=== PATIENT | female | born 1965 | race Caucasian/White ===

== ENCOUNTER 2018-06-08 15:21 | Outpatient (CLI) | payer BC, SELFPAY ==
[2018-06-08 16:28] LABS: Abs Immature Grans 0.01 k/cumm (0.0-0.09); Absolute Basophil Count 0.04 k/cumm (0.0-0.2); Absolute Eosinophil Count 0.17 k/cumm (0.0-0.7); Absolute Lymphocyte Count 2.08 k/cumm (1.2-3.4); Absolute Monocyte Count 0.42 k/cumm (0.11-0.7); Absolute Neutrophil Count 4.81 k/cumm (1.2-6.7); Basophils % 0.5; Eosinophils % 2.3; HCT 39.8 % (36.0-46.0); HGB 13.1 g/dL (12.0-15.5); Immature Grans % 0.1; Lymphocytes % 27.6; Mean Corp. HGB Concentration 32.9 g/dL (32.0-36.0); Mean Corpuscular Hemoglobin 30.9 pg (27.0-33.0); Mean Corpuscular Volume 93.9 fL (80-95); Mean Platelet Volume 11.8 fL (8.0-11.0); Monocytes % 5.6; Neutrophils % 63.9; Platelet Count 184 x1000/uL (130-400); RBC 4.24 m/cumm (4.00-5.20); RBC Distribution Width 13.4 % (11.7-14.6); White Blood Cell Count 7.53 k/cumm (4.4-10.8)
[2018-06-08 16:40] LABS: ALT 23 U/L (12-78); AST 21 U/L (15-37); Alkaline Phosphatase 70 U/L (46-116); Anion Gap 6.8 mmol/L (3-11); BUN 11 mg/dL (7-18); Bilirubin, Total 0.2 mg/dL (0.2-1.0); CO2 27.2 mmol/L (21.0-32.0); CREATININE 0.81 mg/dL (0.55-1.02); Calcium 8.5 mg/dL (8.5-10.1); Chloride 103 mmol/L (98-107); Cholesterol 207 mg/dL (50-200); Glucose 93 mg/dL (70-100); HDL Cholesterol 83 mg/dL (40-60); LDL CHOLESTEROL 99 mg/dL (<100); Potassium 3.6 mmol/L (3.5-5.1); Sodium 137 mmol/L (136-145); Total Protein 7.5 g/dL (6.4-8.2); Triglyceride 120 mg/dL (30-150)
[2018-06-08 16:47] LABS: TSH (W/Ref FT4) 1.51 uIU/mL (0.358-3.74)
[2018-06-09 15:00] LABS: Lipase 240 U/L (73-393)
== END 2018-06-08 15:41 ==
PROVIDERS: PCP Nurse Practitioner; Visit Provider Nurse Practitioner
DX: R63.5 Abnormal weight gain (principal); Z13.220 Encounter for screening for lipoid disorders; R10.9 Unspecified abdominal pain
CPT/HCPCS: 36415; 80053; 80061; 83690; 83721; 84443; 85025

== ENCOUNTER 2018-06-11 00:14 | Outpatient (CLI) | payer BC, SELFPAY ==
--- NOTE | 2018-06-11 09:18 | DI.US_ITS ---
SYMPTOMS/DIAGNOSIS: RUQ PAIN, WORSE WITH EATING, DIARRHEA AFTER EATING, NAUSEA , R10.11, R19.7 ABDOMEN ULTRASOUND: Comparison is made with [id number]. A cyst is again noted at the superior right lobe of the liver measuring 2.7 cm in maximal dimension, unchanged. The overall liver echogenicity is normal. There is no biliary dilatation. No gallstones or gallbladder wall thickening. There is an incidental 3 mm polyp in the gallbladder. On the previous exam it was at measured 6 mm. The kidneys, spleen , pancreas and aorta are unremarkable. IMPRESSION: Small gallbladder polyp. No evidence of gallbladder wall thickening , stones or biliary dilatation.
== END 2018-06-11 00:34 ==
PROVIDERS: PCP Nurse Practitioner; Visit Provider Nurse Practitioner
DX: R10.11 Right upper quadrant pain (principal); R19.7 Diarrhea, unspecified; K82.4 Cholesterolosis of gallbladder
CPT/HCPCS: 76700

== ENCOUNTER 2018-07-18 19:03 | Emergency (ER) | payer BC, SELFPAY ==
[2018-07-18] VITALS (17 sets, daily range): BP systolic 132–174; BP diastolic 73–88; PULSE 69–93; RESP 1–28; TEMP 36.1; O2SAT 99–100
--- NOTE | 2018-07-18 19:21 | ED.GENADUL_ITS ---
Discharge Plan Disposition Patient Disposition: HOME Condition: Good Discharge Details Chief Complaint: SOB Clinical Impression: Exacerbation of reactive airway disease Primary Care Provider: Brooke Ann ED Provider: Rosendo Schumacher Home Meds and New Rx's Prescriptions: No Action amoxicillin-pot clavulanate [Augmentin] 500-125 mg tablet 1 tab PO BID Qty: 20 RF: 0 multivitamin [Daily Multi-Vitamin] 1 EACH tablet 1 ea PO DAILY RF: 0 estrogen as directed RF: 0 fluticasone 16 GM spray,suspension 50 mcg NS DAILY PRNRF: 0 diclofenac sodium [Voltaren] 100 GM gel 1 angeles Topical QID Qty: 1 RF: 2 trazodone 50 MG tablet 50 mg PO HS PRNQty: 30 RF: 3 cyclobenzaprine 5 MG tablet 5 mg PO TID PRNQty: 60 RF: 1 bupropion HCl [Wellbutrin SR] 100 MG tablet extended release 12 hr 100 mg PO DAILY Qty: 90 RF: 3 epinephrine [EpiPen 2-Paulino] 0.3 MG/0.3 ML auto-injector 0.3 mg IM ONCE Qty: 2 RF: 12 levalbuterol tartrate [Xopenex HFA] 15 GM HFA aerosol inhaler 45 mcg Inhalation Q4H PRN PRNQty: 1 RF: 12 promethazine 25 MG tablet 25 mg PO BID Qty: 20 RF: 0 Discharge Instructions Instructions: Reactive Airways Disease (ED) Additional Instructions: Please take your home albuterol every 4-6 hours for the next 24-48 hours. If you notice any worsening of your symptoms, or any new symptoms such as vomiting , diarrhea, fever, chills, shortness of breath, chest pain, numbness, weakness, or fainting , please return immediately to the emergency department for reevaluation. Please follow up with your primary care provider as soon as possible for reassessment and reevaluation. As always, it was a pleasure participating in your medical care today. Referrals: Brooke Ann, [employer] [Primary Care Provider] - Medical Decision Making This is a pleasant 53-year-old female with a past medical history of estrogen use and asthma who presents for evaluation of cough, shortness of breath, and pleuritic chest pain. Patient had no improvement of her symptoms with her breathing treatments. Differential includes potential PE, unlikely cardiac etiology, or pain secondary to her gallbladder which will be taken out later this week. We will perform her a cardiac workup, get a d-dimer, and imaging as indicated. 9:26 PM Laboratory workup is returned benign. EKG is benign, vital signs remained normal the entire time she has been here. Patient has had no oxygen desaturations, tachycardia, or tachypnea. Laboratory workup demonstrates a normal WBC count, no bandemia, d-dimer was normal, electrolytes, renal function were all normal, troponin is within normal limits. TSH is normal. Patient was given a breathing treatment and had significant improvement of her symptomatology. She was also rehydrated with 1 L of normal saline and had improvement of her symptoms. Chest x-ray was wet read as negative per virtual radiology with no acute findings. The patient feeling significantly improved , having normal vital signs, no signs of pneumonia on chest x-ray, normal EKG and cardiac workup, I feel that she can be safely discharged home. Feel her symptoms may be secondary to a mild worsening of her chronic reactive airway disease. We will give Solu-Medrol prior to discharge. With no hypoxemia, no severe wheezes on auscultation, I do not feel that she has a true asthma or COPD exacerbation does not require prolonged steroids. We have recommended that she continues her home albuterol every 4-6 hours for the next 24-48 hours. Had a long discussion with her regarding red flags for which to return, including the importance of follow-up with PCP and potential cardiology if her symptoms return. Additionally with the patient's heart score of less than 2, and no family or personal cardiac risk factors I feel that the likelihood for this to be any cardiac etiology is extremely slim, and certainly inconsistent with her current clinical picture. I have extensively reviewed the treatment plan and discharge instructions with the patient. I have addressed all patient concerns at this time. The patient was made aware of what symptoms to monitor for that would warrant a return to the emergency department. Discussed the plan with the patient, they demonstrate verbal understanding and agreement with our assessment and plan at this time. EKG 19: 27 Rate 73, intervals normal, sinus rhythm, no significant ST elevations or depressions, no T wave inversions, no Q waves. No S1 Q 3 T3. HPI General Date/Time Provider Initiated Documentation: 07/18/18 19:14 . HPI Narrative: This is a 53-year-old female with a past medical history of asthma, and estrogen use for menopause. She has an noted gallbladder cyst, for which she is scheduled to have removed this coming week. She presents today for evaluation of cough, shortness of breath and chest pain. She states that for the last 4 days she has had mild shortness of breath, notable fatigue, mild cough that is been slightly productive, as well as pleuritic chest pain, worse on the left, and radiating to the back of her left scapula. She is taking her breathing treatments but this is not improved her symptoms. She denies any recent long trips, recent surgeries, or history of blood clots or PEs. She denies any personal or family history of cardiac disease. She has been sticking to a nonfat diet except for yesterday where she had some gravy and chicken, but she denies any associated nausea vomiting or abdominal pain. Patient denies any hemoptysis. She denies any calf swelling or tenderness. She denies any radiation of the pain into her arms or neck. Patient denies any aggravating or relieving factors aside for aforementioned. Patient denies any IV, illicit drug use, or tobacco use. Of note the patient also did have recent parotidis, for which she was taking Augmentin. The symptoms have since resolved. It is been a few days since she has been on the antibiotic. Related Data Home Medications Medication Instructions Recorded Confirmed Estrogen 0 as directed 07/27/15 multivitamin [Multi-Vitamin Daily] 1 ea PO DAILY 07/27/15 06/08/18 fluticasone 50 mcg NS DAILY PRN spray 08/09/15 06/08/18 diclofenac sodium [Voltaren] 1 angeles TOPICAL QID #1 tube 03/10/17 trazodone 50 mg PO HS PRN #30 tab 11/23/17 bupropion HCl [Wellbutrin Sr] 100 mg PO DAILY #90 tab 01/06/18 cyclobenzaprine 5 mg PO TID PRN #60 tab-cap 01/06/18 epinephrine [Epipen 2-Paulino] 0.3 mg IM ONCE #2 pen 01/06/18 levalbuterol tartrate [Xopenex Hfa] 45 mcg INHALATION Q4H PRN PRN #1 01/06/18 inhaler promethazine 25 mg PO BID #20 tab-cap 04/08/18 amoxicillin 500 mg-potassium 1 tab PO BID #20 tab 06/08/18 06/08/18 clavulanate 125 mg tablet Previous Rx's Medication Instructions Recorded bupropion HCl [Wellbutrin Sr] 100 mg PO DAILY #90 tab 01/06/18 epinephrine [Epipen 2-Paulino] 0.3 mg IM ONCE #2 pen 01/06/18 promethazine 25 mg PO BID #20 tab-cap 04/08/18 amoxicillin 500 mg-potassium 1 tab PO BID #20 tab 06/08/18 clavulanate 125 mg tablet Allergies Allergy/AdvReac Type Severity Reaction Status Date / Time morphine Allergy itchy Unverified 07/18/18 19:18 General Stated Complaint: SOB VONDA: 2 Review of Systems Review of Systems All systems reviewed & are unremarkable except as noted in HPI and below PFSH Family History Mother Osteoporosis Father Diabetes Personal history of malignant neoplasm Melanoma Sister Breast cancer Sister No problems noted. Sister No problems noted. Brother No problems noted. Brother No problems noted. Son No problems noted. Daughter No problems noted. Grandmother Diabetes Grandfather No problems noted. Other Alcohol abuse Medical History Anxiety and depression Migraine asthma Social History Smoking/Tobacco Use Status: Never Surgical History Appendectomy Colonoscopy w/ bx (03/18/06) Hysterectomy, Laproscopic (01/08/11) excisional biopsy (01/17/02) Exam Narrative Exam Narrative: 1.Const: Well-nourished, Well-developed, appearing stated age 2.Eyes: PERRL, no conjunctival injection, and symmetrical lids. 3.ENT: Atraumatic external nose and ears. Moist MM. Neck: Symmetric, trachea midline, No thyromegaly. 4.CVS: +S1/S2, No murmurs or gallops. Peripheral pulses 2+ and equal in all extremities. Brisk capillary refill in all extremities. 5.RESP: Unlabored respiratory effort. Clear to auscultation bilaterally. No wheezes rales or rhonchi 6.GI: Soft, Nontender/Nondistended, No hepatosplenomegaly. No guarding or rebound. Negative Mao sign, no pain at McBurney's point for 7.MSK: Normocephalic/Atraumatic, Extremities w/o deformity or ttp No cyanosis or clubbing, Normal movement of all extremities no calf tenderness. 8.Skin: Warm, Dry. No rashes or lesions. 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 Sensation grossly intact, no focal neurologic deficits. 10.Psych: (AAO) x3. Appropriate mood and affect Course Vital Signs Temperature 36.1 C L 07/18/18 19:10 Pulse 90 07/18/18 19:10 Respiratory Rate 17 07/18/18 19:10 Blood Pressure 174/79 H 07/18/18 19:10 Pulse Oximetry 99 07/18/18 19:10 Temperature 36.1 C L 07/18/18 19:10 Temperature Source Temporal Artery Scan 07/18/18 19:10 Pulse 90 07/18/18 19:10 Respiratory Rate 17 07/18/18 19:10 Respiratory Effort Non-Labored 07/18/18 19:13 Blood Pressure 174/79 H 07/18/18 19:10 Blood Pressure Position Sitting 07/18/18 19:10 Pulse Oximetry 99 07/18/18 19:10 Oxygen Delivery Method Room Air 07/18/18 19:10 Oxygen Flow Rate 0 07/18/18 19:10
[2018-07-18] MEDS: Normal Saline 1,000 ML 1000 ML IV (19:35)
[2018-07-18 19:46] LABS: Abs Immature Grans 0.01 k/cumm (0.0-0.09); Absolute Basophil Count 0.07 k/cumm (0.0-0.2); Absolute Eosinophil Count 0.31 k/cumm (0.0-0.7); Absolute Lymphocyte Count 3.29 k/cumm (1.2-3.4); Absolute Monocyte Count 0.53 k/cumm (0.11-0.7); Absolute Neutrophil Count 2.58 k/cumm (1.2-6.7); Eosinophils % 4.6; HCT 37.1 % (36.0-46.0); HGB 13.1 g/dL (12.0-15.5); Immature Grans % 0.1; Lymphocytes % 48.5; Mean Corp. HGB Concentration 35.3 g/dL (32.0-36.0); Mean Corpuscular Hemoglobin 31.6 pg (27.0-33.0); Mean Corpuscular Volume 89.4 fL (80-95); Mean Platelet Volume 11.4 fL (8.0-11.0); Monocytes % 7.8; Platelet Count 183 x1000/uL (130-400); RBC 4.15 m/cumm (4.00-5.20); RBC Distribution Width 12.4 % (11.7-14.6); White Blood Cell Count 6.79 k/cumm (4.4-10.8)
[2018-07-18] MEDS: Albuterol/Ipratropium 3 ML UPD VIAL UPD (19:50)
[2018-07-18 20:03] LABS: ALT 32 U/L (12-78); AST 27 U/L (15-37); Albumin 3.7 g/dL (3.4-5.0); Alkaline Phosphatase 64 U/L (46-116); Anion Gap 11.5 mmol/L (3-11); BUN 18 mg/dL (7-18); Bilirubin, Total 0.2 mg/dL (0.2-1.0); CO2 23.5 mmol/L (21.0-32.0); Calcium 9.4 mg/dL (8.5-10.1); Chloride 105 mmol/L (98-107); Glucose 99 mg/dL (70-100); Potassium 3.5 mmol/L (3.5-5.1); Sodium 140 mmol/L (136-145); Total Protein 7.3 g/dL (6.4-8.2)
[2018-07-18 20:05] LABS: Troponin I < 0.02 ng/mL (0.00-0.06)
[2018-07-18 20:11] LABS: TSH 2.91 uIU/mL (0.358-3.74)
[2018-07-18 20:15] LABS: D-Dimer 298 ng/mlFEU (<500)
--- NOTE | 2018-07-18 20:39 | DI.RAD_ITS ---
SYMPTOM/DIAGNOSIS: COUGH, LT UPPER CHEST PAIN PA AND LATERAL CHEST: There are no prior comparison exams. The heart size is normal. There is mild respiratory motion on the PA view. The lungs appear clear. IMPRESSION: Negative chest xray.
[2018-07-18] MEDS: Ketorolac 30 MG/ML VIAL IVP (21:01)
--- NOTE | 2018-07-18 21:09 | DI.VRAD_ITS ---
EXAM: XR Chest, 2 Views EXAM DATE/TIME: 07/18/2018 8:40 PM CLINICAL HISTORY: 53 years old, female; Pain; Chest pain; Type not specified; Patient HX: Lt upper cp TECHNIQUE: XR of the chest, 2 views. COMPARISON: No relevant prior studies available. FINDINGS: Lungs: Unremarkable. No consolidation. Pleural space: Unremarkable. No pleural effusion. No pneumothorax. Heart/Mediastinum: Unremarkable. No cardiomegaly. Bones/joints: Unremarkable. IMPRESSION: No acute findings. Dictated and Authenticated by: Matt Aguiar MD. Ordering:KOLE CASTILLO MD
[2018-07-18] MEDS: methylPREDNISolone SUCC 125 MG VIAL IVP (21:46)
== END 2018-07-18 22:11 | disposition home or self-care (01) ==
PROVIDERS: Emergency Provider Student in an Organized Health Care Education/Training Program; PCP Nurse Practitioner
DX: J45.901 Unspecified asthma with (acute) exacerbation (principal)
CPT/HCPCS: 36415; 80053; 93005; 94640; 96361; 96374; 96375; 99285; 71046; 84443; 84484; 85025; 85379; 93010; J1885; J2930; J7620

== ENCOUNTER 2018-09-13 17:13 | Outpatient (REF) | payer BC, SELFPAY ==
[2018-09-14 22:23] LABS: Result Positive; Specimen Description Feces
[2018-09-15 11:20] LABS: Campylobacter PCR SEE COMMENTS; Salmonella PCR SEE COMMENTS; Shiga Toxin PCR SEE COMMENTS; Shigella/Enteroinvasive Ecoli SEE COMMENTS
== END 2018-09-13 17:33 ==
LOC: LBN 17:13
PROVIDERS: PCP Nurse Practitioner; Visit Provider Nurse Practitioner
DX: R19.7 Diarrhea, unspecified (principal)
CPT/HCPCS: 87505; 87324; 87798

== ENCOUNTER 2019-06-06 00:31 | Outpatient (CLI) | payer BC, SELFPAY ==
[2019-06-06 14:02] LABS: CREATININE 0.71 mg/dL (0.55-1.02)
--- NOTE | 2019-06-06 15:06 | DI.MRI_ITS ---
SYMPTOM/DIAGNOSIS: ; PAROTIDS K11.20, JAW PAIN R68.84 FACIAL, NECK MRI: 06/06 MRI examination of the cervical region was performed utilizing multiplanar imaging. The patient refused contrast material. No gross mass or adenopathy identified in the cervical region. The visualized orbits and temporal bone structures appear intact. Visualized brain is unremarkable. There is an approximately 3 mm in diameter nodule of the parotid gland on the right which lies just posterior lateral to the angle of the mandible. On the left there is an approximately 6 mm in diameter nodule which is in a similar location. No additional convincing intra parotid abnormality seen. Submandibular glands appear normal. CONCLUSION: Tiny thyroid nodules are seen bilaterally, these are of mildly decreased signal on T-1 weighted imaging and mildly increased signal on T2 weighted imaging. These may represent small intraparotid lymph nodes, neoplastic disease not excluded but the findings are indeterminate. Contrast enhanced MR or contrast enhanced CT recommended for further evaluation. If the patient refuses any contrast examination a follow up scan can be obtained in six months.
== END 2019-06-06 00:51 ==
PROVIDERS: PCP Nurse Practitioner; Visit Provider Otolaryngology Otolaryngology/Facial Plastic Surgery
DX: K11.20 Sialoadenitis, unspecified (principal); R68.84 Jaw pain; Z01.812 Encounter for preprocedural laboratory examination; K11.8 Other diseases of salivary glands
CPT/HCPCS: 36415; 70540; 70551; 82565

== ENCOUNTER 2019-10-19 12:53 | Outpatient (CLI) | payer BC, SELFPAY ==
[2019-10-19 13:19] LABS: HCT 40.5 % (36.0-46.0); HGB 13.4 g/dL (12.0-15.5); Mean Corp. HGB Concentration 33.1 g/dL (32.0-36.0); Mean Corpuscular Hemoglobin 30.7 pg (27.0-33.0); Mean Corpuscular Volume 92.9 fL (80-95); Platelet Count 193 x1000/uL (130-400); RBC 4.36 m/cumm (4.00-5.20); White Blood Cell Count 6.67 k/cumm (4.4-10.8)
[2019-10-19 14:03] LABS: ALT 19 U/L (14-59); AST 14 U/L (15-37); Albumin 3.8 g/dL (3.4-5.0); Alkaline Phosphatase 55 U/L (46-116); Anion Gap 8.4 mmol/L (3-11); BUN 15 mg/dL (7-18); Bilirubin, Total 0.2 mg/dL (0.2-1.0); CO2 28.6 mmol/L (21.0-32.0); CREATININE 0.81 mg/dL (0.55-1.02); Calcium 8.8 mg/dL (8.5-10.1); Calculated LDL 86 mg/dL; Chloride 104 mmol/L (98-107); Cholesterol 190 mg/dL (<200); Glucose 91 mg/dL (74-106); HDL Cholesterol 79 mg/dL (40-60); Potassium 4.2 mmol/L (3.5-5.1); Sodium 141 mmol/L (136-145); Total Protein 7.1 g/dL (6.4-8.2); Triglyceride 129 mg/dL (<150)
[2019-10-20 13:23] LABS: Lyme Ab w Rflx to Lyme Confirm Negative (Negative)
[2019-10-21 13:56] LABS: ANA Interpretation Negative (Negative)
[2019-10-21 16:13] LABS: Anaplasma phagocytophilum Negative (Negative); B. miyamotoi PCR Negative (Negative); Babesia divergens/MO-1 Negative (Negative); Babesia duncani Negative (Negative); Babesia microti Negative (Negative); Ehrlichia chaffeensis Negative (Negative); Ehrlichia ewingii/canis Negative (Negative); Ehrlichia muris eauclairensis Negative (Negative)
== END 2019-10-19 13:13 ==
PROVIDERS: PCP Nurse Practitioner; Visit Provider Nurse Practitioner
DX: M25.50 Pain in unspecified joint (principal); M35.00 Sjogren syndrome, unspecified; R53.83 Other fatigue; Z13.220 Encounter for screening for lipoid disorders
CPT/HCPCS: 36415; 80053; 80061; 85027; 87798; 86038; 86431; 86618

== ENCOUNTER 2020-04-09 07:16 | Day surgery (SDC) | payer BC, SELFPAY ==
[2020-04-09 07:19] VITALS: BP 132/85; PULSE 84; RESP 17; TEMP 36.1; O2SAT 96
[2020-04-09] MEDS: Lactated Ringers 1,000 ML 80 ML IV (07:40)
[2020-04-09 08:25] VITALS: BP 133/79; PULSE 72; RESP 16; TEMP 36; O2SAT 100
--- NOTE | 2020-04-09 08:49 | W.COLOREPORT ---
Date of service: 04/09/20 Time of Service: 08:50 Colonoscopy Report Date of procedure: 04/09/20 Pre-op diagnosis general: screening / hx of C.diff and katlyn. chronic diarrhea Post-op diagnosis procedure note: same Procedure: CE Surgeon: Alejandrina Cortes Anesthesia proc note operative: MAC Estimated blood loss (mL): 0 Pathology: none sent Complications: None Disposition: same day Prep: Miralax/Dulcolax Retraction Time: 10 mins Procedure Description: After informed consent was obtained the patient was taken to the procedure room and placed in a left decubitous position. Monitors were applied and a time out was done. The patients name, date of , procedure, allergies to medications and metal in their body was reviewed. The patient was then sedated. Once sedated and comfortable a rectal exam was done. External exam was normal. Internal exam revealed a normal sphincter tone and no palpable masses. The scope was then introduced and retrofelexed. No internal hemorrhoids were identified. The scope was then advanced to the cecum w/ outu difficulty. The TI and appendiceal orifice were identified. The prep was good. The scope was then slowly retracted over [] minutes back into the rectum. No polyps AVMs or diverticuli identified. The colon is pink and healthy and no signs of colitis or C. difficile. The scope was removed and the patient was woken up and taken back to Same day surgery in stable condition. The patient tolerated the procedure well and there were no immediate complications. Follow up: The patient should follow up in 10 years unless they develop changes in bowel habits or other new gastrointestinal complaints.
--- NOTE | 2020-04-09 09:01 | PDOC.DSDIS_ITS ---
Discharge Plan Disposition Patient Disposition: HOME Condition: Good Discharge Details Reason For Visit: colon scope Attending Provider: Alejandrina Cortes Primary Care Provider: Brooke Ann Home Meds and New Rx's Prescriptions: No Action cyclobenzaprine 5 mg tablet 5 mg PO TID PRN (Reason: muscle spasm) Qty: 60 RF: 0 epinephrine [EpiPen 2-Paulino] 0.3 mg/0.3 mL auto-injector 0.3 mg IM ONCE Qty: 2 RF: 12 multivitamin [Daily Multi-Vitamin] 1 EACH tablet 1 ea PO DAILY RF: 0 estrogen 0.5 mg PO DAILY RF: 0 acetaminophen 500 mg Tablet 1,000 mg PO Q6H PRNRF: 0 bupropion HCl [Wellbutrin SR] 100 mg tablet sustained-release 12 hr 100 mg PO DAILY Qty: 90 RF: 3 albuterol sulfate [Proventil HFA] 90 mcg/actuation HFA aerosol inhaler 1 - 2 puff IH Q6H PRN (Reason: shortness of breath or wheezing) Qty: 18 RF: 5 fluticasone propionate 110 mcg/actuation HFA aerosol inhaler 2 puff IH BID Qty: 12 RF: 4 trazodone 50 mg tablet 50 mg PO HS PRN (Reason: insomnia) Qty: 90 RF: 1 Discharge Instructions Additional Instructions: Findings:normal Repeat in 10 yrs time Kefir daily for proBiotics cont. fiber regimen. If diarrhea continues, F/u w/ my office to d/w starting cholestyramine. Follow up: as needed Please call if you develop: fevers >101.5 Nausea or Vomiting Abdominal pain that is not transient DAY SURGERY UNIT POST COLONOSCOPY INSTRUCTIONS 1. Because there will be medication in your system for the next 24 hours, you may feel a little sleepy. Your coordination will be affected. Therefore: a. Do not drive or operate dangerous equipment for 24 hours. b. Do not drink alcohol beverages for 24 hours (not even beer). c. Plan to go home and rest for the day. 2. Generally there are no restrictions on your activity after a day or so has gone by, but you may feel a bit fatigued for a few days. 3 After you arrive home you may have a light meal and return to a normal diet as you can tolerate it without feeling sick to your stomach. 4. After surgery, you may feel pain or discomfort. This should be only transient, but if it persists please contact your doctor. 5. If there are any questions regarding the findings of your procedure, please feel free to contact your doctor. 6. If you are unable to contact your doctor with a problem, contact the hospital at [phone]. 7. Continue all your regular medications unless directed otherwise. I understand the above instructions and have no questions. Signature of Patient or Responsible Adult Escort Date/Time Name of Responsible Adult Escort Signature of Nurse Date/Time High Fiber Diet What is Dietary Fiber? All fiber comes from plants, bushes, ana or trees. Of course, the ones that we eat provide us with fruits, vegetables and grains. There are many different types of fiber but the three that are most important to the health of the body are: Insoluble Fiber This fiber does not dissolve in water, nor is it fermented by the bacteria residing in the colon. Rather, it retains water and in so doing, helps to promote a larger, bulkier and more regular bowel activity. This, in turn, may be important in preventing disorder such as diverticulosis and hemorrhoids, and in sweeping out certain toxins and cancer causing carcinogens. Sources of insoluble fiber are: ? whole grain wheat and other whole grains ? corn bran, including popcorn, unflavored and unsweetened ? nuts and seeds ? potatoes and the skins from most fruits from trees such as apples, bananas and avocados ? many green vegetables such as green beans, zucchini, celery and cauliflower ? some fruit plants such as tomatoes and kiwi Soluble Fiber These fibers are fermented or used by the colon bacteria as a food source or nourishment. When these good bacteria grow and thrive, many health benefits occur in both the colon and the body. Soluble fiber is present in some degree in most edible plant foods, but the ones with the most soluble fiber include: ? legumes such as peas and most beans, including soybeans ? oats, rye and barley ? many fruits such as berries, plums, apples bananas and pears ? certain vegetables such as broccoli and carrots ? most root vegetables ? psyllium husk supplement products Prebiotic Soluble Fiber These are relatively newly discovered soluble plant fibers. The technical name for this fiber is inulin or fructan. When these soluble fibers are fermented by the good colon bacteria, some further significant health benefits have been shown to occur by research in many medical centers. These soluble prebiotic fibers occur in significant amounts in: ? asparagus ? yams ? onions ? garlic ? bananas ? leeks ? agave ? chicory and other root vegetables such as [place] artichokes ? wheat, rye and barley (smaller amounts) Benefits of a High Fiber Diet The health benefits of a high fiber diet, consumed on a regular basis and reaching recommended amounts (below), are now fairly well-defined. There are some additional benefits in the early research stage with the prebiotic soluble fibers. What is now known regarding a high fiber diet include: Bowel Regularity A high fiber diet promotes regularity with a softer, bulkier and regular stool pattern. This decreases the chance of hemorrhoids, diverticulosis and perhaps colon cancer. Cholesterol and Reduced Triglycerides The soluble fibers are the ones that will reduce cholesterol levels when used on a regular basis. Psyllium husk and prebiotic soluble fiber will also reduce cholesterol. They may also reduce the incidence of coronary heart disease. Oats, flax seeds and legumes or beans are the recommended fibers. Colon Polyps and Cancer It is still not certain if a high fiber diet helps prevent colon cancer. Considerable research suggests that this may occur. Certainly it makes sense to increase regularity and so speed the movement of cancer causing carcinogens through the bowel. In addition, reducing a heavy meat diet reduces the bile flow from the liver in a favorable way. This, too, reduces the amount of carcinogens that reach and are manufactured in the colon. Finally, a high fiber diet, including prebiotic soluble fiber, increases the integrity and health of the wall of the colon. The risk of cancer may be reduced. Colon Wall Integrity A high fiber diet changes the bacterial makeup of the colon toward a more favorable balance. For instance, it is known that those people with obesity, diabetes type 2 and inflammatory bowel disease have a predominance of bad bacteria in the colon. This, in turn, may render the bowel wall weak and allow bacteria and, indeed, even toxins to seep through. A high fiber diet with a modest reduction in animal and meat products may return the bacterial makeup to a more positive balance. This, in particular, has been seen when the soluble fiber prebiotics are added to the diet. Blood Sugar Soluble fiber such as in legumes (beans), oats and in prebiotic fibers slows the absorption of blood sugar and so helps regulate the sugar in the blood. Insoluble fiber on a regular basis is associated with reduced risk of type 2 diabetes. Weight Loss High fiber diets are more filling and give a sense of fullness sooner than an animal and meat based diet does. In addition, the soluble prebiotic fibers have been shown to turn off the hunger hormones produced in the wall of the gut and to increase the hormones that give a sense of fullness. Those hormones are made in the wall of the gut. New medical research has shown that the bacterial makeup in the colon in overweight people is abnormal to the extent that they manufacture and absorb almost twice the number of calories through the colon wall as do normals. Prebiotic fibers (below) will help change this hormonal balancein a favorable way. Bacteria and the Function of the Colon The colon finishes the digestive process. Hopefully, the waste products move through in a nice regular manner. Insoluble fibers help this process by retaining water and so producing a bulkier, softer stool, which is easy to pass. The additional role of the colon is to provide a home for an enormous number of micro-organisms, mostly bacteria. Recent research has shown that there are over 1,000 species of bacteria with a total bacterial count ten times the number of cells in the body. These bacteria play a major role in keeping the colon wall itself healthy. In addition, these good bacteria produce a very strong immune system for the body. They significantly increase calcium absorption and bone density. They provide other documented benefits. It is the soluble fibers in the diet that are so effective in stimulating the growth of good colon bacteria. How Much is Enough? The amount of fiber in food is measured in grams. National nutritional authorities recommend the following amounts of dietary fiber daily. Under Age 50 Over Age 50 Men 38 grams 30 grams Women 25 grams 21 grams For a week or so, it is best to tally the amount of fiber you are consuming. Boxed and packaged foods will have the amount of fiber per serving on the nutrition label. Which Fibers and Which Foods are Best? As noted, healthy fiber is only found in plants. The three major categories are whole grains, fruits and vegetables. Whole Grains Wheat, oats, barley, wild or brown rice, amaranth, buckwheat, bulgur, corn, millet, quinoa, rye, sorghum, teff and triticals. By far, wheat, oats and wild or brown rice are most common. Always buy whole grain products. White bread, baked goods and rolls almost always are made from wheat flour. Wheat flour is white because most of the fiber, vitamins and other nutrients have been removed. Try not buy enriched grains. What this means is that simple white flour has had vitamins added to it by the supervisor of officials. The word, enriched, implies a good and healthy product. On the contrary, enriched means that most of the fiber has been removed and a few vitamins added. Fruits Fruits come from trees such as apple and pear or from bushes or ana. You should eat a wide variety of fruits, preferably with every meal. In many cases, the skin of a fruit such as apple will contain much of the insoluble fiber while the pulp contains most of the soluble fiber. To the extent possible, buy organic fruits as these will have little or no pesticides. Always wash fruit. Vegetables Eat a wide variety of vegetables. They should be a mainstay of lunch and dinners. Frozen vegetables retain as much nutrition and fiber as fresh vegetables. As with fruit, try to buy organic to reduce any residual pesticide ingestion. Wash fresh vegetables thoroughly. Cruciferous vegetables such as broccoli, [place] sprouts and cauliflower contain certain chemicals such as sulforaphane. This substance has very strong anti-cancer properties and should be eaten frequently. Legumes, Beans, Peas and Soybeans These vegetables have plenty of soluble fiber and should be part of a varied vegetable intake. Beans, in particular, contain a certain type of fiber that may lead to harmless gas or bloating. Nuts and Seeds These are rich sources of fiber and are a good substitute for sweets such as candies and baked sweet goods. While nuts and seeds are rich in fiber, they also contain vegetable fat and so can and do add calories. Read the Labels As noted, fresh and frozen foods are usually better. They have good nutrition and few, if any, chemicals added to them. When buying packaged foods and, in particular grains, look for three things: ? The first word on the label should be whole, such as whole wheat or whole grain. ? Check out the calories and the amount of fiber in a serving. ? How many and what other additives or chemicals are added. Fewer is always better. Do you know what each additive does? Some are added not for the benefit of the purchasing buyer but rather for manufacturers. These could and do include sugar, artificial flavor, chemicals to prevent oxidation and spoilage, emulsifiers to blend the product. You have to be a squirrel worker. Fiber Facts, Nuggets and Pearls ? For breakfast you can easily get the day started well by using a high fiber, whole grain cereal. Check the labels. Add fruit such as blueberries and bananas. If you are an egg eater, use whole wheat or grain toast. Adding wheat germ gives you a good fiber kick. ? Always use whole grain or wheat with rolls and sandwiches. Does your fast food store not have them? Perhaps you look elsewhere. Eating an occasional b lack hilario or veggie burger provides variety. ? Snacks should consist of fruit and/or nuts. While nuts are loaded with fiber, they are an energy rich food, meaning they have a lot of calories in a small packet. ? Fruit juices should contain pulp. Clear juices such as clear orange, pear or apple juice contain little fiber and have a lot of fructose. Prune juice is usually high in fiber. ? Homemade soups ? adding fresh or frozen vegetables to a chicken or vegetable stock is a good way to start homemade soup. ? Salads ? adding cooked and then chilled vegetables provide great flavoring to almost any salad. Remember, a john salad has lots of cooked corn in it. Small slices of apples or oranges and nuts such as chopped walnuts or sliced almonds always adds taste, variety and fiber to almost any salad. ? Fruit ? Try to eat fruit of some type with almost every meal. ? Rethink how you place the various foods on your dinner plate. Reducing the portions of the meat or animal food portion to the side with equal or more portions of vegetables, legumes and fruits portion always allows for more fiber. There was never anything magic about making the meat or animal food portion the main part of the dinner plate. Eating from smaller plates can, over time, trick your mind and extermination inspector habit of using a dinner plate. Again, there is nothing magic in an 11, 12, or 13 inch dinner plate. Fiber Supplements There are a variety of fiber supplements available on the food or pharmacy shelves. Psyllium This soluble plant fiber has been used in [place] for over 2,000 years. It is a soluble fiber with mucilage in it. This acts to retain a lot of water and also is fermented by colon bacteria. When 7 grams a day are used, it does lower cholesterol. Metamucil in various forms is psyllium. Methyl Cellulose All the cellulose products come from finely ground wood chips which are then treated in a variety of ways such as boiling in acids. Methyl cellulose is an insoluble fiber which does dissolve in water. It is also an emulsifier, meaning it blends oils and water. Citrucel is methyl cellulose (MC). MC may not be appropriate for Crohn?s disease or ulcerative colitis as several medical studies have shown that certain emulsifiers dissolve the mucous lining of the colon in animals prone to Crohn?s disease. This then allows bacteria to invade the underlying tissue. Inulin Inulin is a soluble prebiotic fiber found in many foods and which are fermented mostly in the left side of the colon. It is available in a supplement as generic inulin and in Fiber Choice. Oligofructose FOS These are also prebiotic fibers. They are fermented very quickly in the right side of the colon. Prebiotin This product is a combination of oligofructose, which feeds the bacteria in the right side of the colon and inulin, which does the same in the left side of the colon. There seems to be a benefit for this particular formula based on medical research. Prebiotic Soluble Fiber These may be the healthiest of all the soluble fibers. They grow in many plants and have had a great deal of research done on them in the last 10-15 years. These fibers are found in asparagus, yams and other root vegetables such as chicory, garlic, onion, leeks and in smaller amounts in wheat. This research has shown the following: ? Increase in good and decrease in bad colon bacteria ? Increase calcium absorption and enhanced bone mass ? Enhanced immune system ? Appetite and weight control by changing the hormone appetite signals to the brain ? May decrease colon cancer incidence ? Reduce or correct a leaky colon Eating a wide variety of plant food up to the recommended amount will likely give you enough prebiotic fiber. Supplements such as Prebiotin can be added to the diet. Short Chain Fatty Acids (SCFA) Some rather remarkable research findings have shown that one of the benefits of ingesting a lot of soluble fiber, in particular the prebiotic ones, results in larger amounts of SCFAs in the colon. These SCFAs are made by the good bacteria in the colon such as Bifidobacter and Lactobacillus. These small molecules have been shown to do the following: ? Enhance the health and integrity of the colon wall ? Provide nourishment for the cells that actually line the colon ? Increases the acidity of the colon which is a very real health benefit ? Stabilize blood sugar for diabetics ? Reduce blood cholesterol and triglyceride ? Significantly enhance immunity ? May be a benefit for Crohn?s disease and ulcerative colitis patients Fiber and Gas Everyone has intestinal gas and that is a good thing. It means that bacteria, hopefully the good ones, are thriving. The normal amount of flatus passed each day depends on sex and what is eaten. The normal number of flatus is 10-20 times a day. When the bacteria that make intestinal gases are growing, it also means that other good bacteria are using the same fibers to grow and produce multiple health benefits, including the production of healthy short-chain fatty acids. These substances are produced quietly in the colon and produce many health-related outcomes. Soluble fiber should always be used in a gradual manner. If too much is consumed at any one time, then excess, but harmless, intestinal gas can occur. People with irritable bowel syndrome are particularly prone to bloating and mild cramping. In this instance, soluble fiber in the diet or supplement should be used in small doses and increased gradually. Finally, prebiotic fibers tend to cause the production of short-chain fatty acids which acidify the colon. This, in turn, reduces or stops the growth of bacteria that make the smelly hydrogen sulfide gases that produce noxious flatus. People who consume many vegetables with prebiotics or take a prebiotic fiber supplement often have non-odoriferous flatus. Fiber and Irritable Bowel Syndrome Irritable bowel syndrome (IBS) is one of the most common disorders of the lower digestive tract. The symptoms of IBS can be quite varied. They can be a mix of several symptoms such as constipation, diarrhea, crampy abdominal discomfort, bloating and gas. An attack of IBS can be triggered by emotional tension and anxiety, poor dietary habits and certain medications. It is now known that infections in the intestine can lead to long-term IBS symptoms. Increased amounts of fiber in the diet can help relieve the symptoms of irritable bowel syndrome by producing soft, bulky stools. This helps to normalize the time it takes for the stool to pass through the colon. Recent medical research with newer techniques has shown some surprising and dramatic findings for IBS patients. Specifically, there is a very significant and abnormal shift of bacteria from those that provide health benefits to those bad bacteria that we really do not want in the gut. The technical name for this bad group of bacteria is called Firmicutes. Along with this abnormal bacterial collection, there is a smoldering low-grade inflammation in the gut wall that may contribute to symptoms. The goal for IBS patients should be to gradually increase the soluble dietary fibers in the diet so as to promote the growth of good bacteria and so suppress the bad ones along with the associated inflammation. IBS patients need to be careful of the amount of soluble fiber they consume. The reason for this is that, while the good colon bacteria thrive on these f ibers and produce health benefits, other gas-forming bacteria may generate excessive but harmless gas and subsequent bloating. Thus, soluble plant fibers or a dietary prebiotic supplement should be taken in small initial doses and then gradually increased to tolerance. Fiber and Colon Polyps/Cancer Colon cancer is a major health problem. This disease is most common in Western cultures. It is not seen very often in rural cultures where the diet is mostly plant based. Usually, colon cancer starts out as a colon polyp, a benign mushroom-shaped growth. In time it grows, and in some people it becomes cancerous. Colon cancer is usually always curable if polyps are removed when found or if surgery is performed at an early stage. It is now known that people can inherit the risk of developing colon cancer, but diet is important, too. As noted, there is a very low rate of colon cancer in residents of countries where grains are unprocessed and retain their fiber. It seems that in the [place] world, cancer-containing agents (carcinogens) remain in contact with the colon wall for a longer time and in higher concentrations. So, a large bulky stool may act to dilute these carcinogens by moving them through the bowel more quickly. Less carcinogenic exposure to the colon may mean fewer colon polyps and less cancer. A very current review of the entire world?s literature on the effect of fiber on colon polyps and cancer prevention has shown rather clearly that for every 10 grams of fiber added to the diet, there is a 10% reduction in incidence of colon cancer. So the recommended 30 gram fiber diet would result in a 30% less chance of getting these tumors. There are also substances produced in the colon by the good bacteria that seem to retard certain pre-cancer factors from developing. They are called short- chain fatty acids (SCFA). See above for description of SCFAs. A high fiber diet increases these substances. So, the combination of dietary fiber and the production of short-chain fatty acids have a clear health benefit. Fiber and Diverticulosis Prolonged, vigorous contraction of the colon over a long period of time may result in diverticulosis. This increased pressure causes small and, eventually, larger ballooning pockets to form. These pockets by themselves cause no problem. However, sometimes they become infected (diverticulitis) or even break open (perforate) causing infection or inflammation within the abdomen (peritonitis). A high fiber diet increases the bulk in the stool and thereby reduces the pressure within the colon. By so doing, the formation of pockets may be reduced or possibly even stopped. In the past, many physicians were fearful that seeds as in tomatoes, nuts or berries were harmful and could get inside these pockets and rattle around, causing damage. We now know that this has never been the case and that these foods contain lots of fiber and are actually beneficial for diverticulosis patients. Certain bulking agents such as psyllium are traditional types of bulk producing supplements. Psyllium is a soluble fiber. Combining it with insoluble fiber as in wheat bran or corn bran (no gluten) can enhance this bulking effect even more. A product containing a prebiotic, psyllium and wheat bran is probably a very good combination for bowel regularity. Prebiotin Regularity/Diverticulosis is one such product. Inflammatory Bowel Disease (IBD) IBD means Crohn?s Disease (CD) or Ulcerative Colitis (UC). CD is an inflammation of the lower small bowel and/or the colon. Bacteria actually invade and cause inflammation in the entire wall of the intestine. UC, on the other hand, is an inflammation just of the lining of the colon. It usually starts in the rectum and left colon and may spread to the entire colon from there. It is now known that in both CD and UC that the bacterial make up is abnormal. This means that there are significantly more of the bad bacteria present than the good ones. These abnormal bacteria are called Firmicutes. Fiber and Crohn?s Disease There is now some information in the medical literature on what type of diet may be harmful and what may help Crohn?s Disease. A reduction in red meat is likely helpful. So is reducing the fat in the diet, including vegetable oils. More importantly, people who had low fiber ingestion in the diet had a greater chance of getting CD. So, a gradual increase in the amount of fiber is likely helpful in hopefully preventing CD. This should always be done in conjunction with the physician. It should be done gradually and should include soluble fibers which fertilize the best colon bacteria. The good bacteria grow and push out the bad ones. These good bacteria provide short chain fatty acids, which can help heal the bowel wall. Prebiotics such as Prebiotin are available. Fiber and Ulcerative Colitis We still do not have strong evidence in the medical literature on what is the best diet for UC. Eating plenty of soluble fiber, including prebiotic fibers will nourish the best colon bacteria. It is hoped that this will result in a decrease in the bad or Firmicutes bacteria. It is well-known that when the good bacteria proliferate that they produce lots of acid substances called short chain fatty acids (SCFA). The SCFAs actually nourish the cells of the colon wall, the very ones that become inflamed in UC. In addition, when the colon contents become acid, the smelly sulfide gases are not produced and the flatus becomes less noxious and may even have no smell at all. This may have a beneficial effect on the inflammation. Prebiotics such as Prebiotin are the best type of soluble fiber. Stand Alone Forms: Colonoscopy Post Instructions Activity:: No lifting over 20 pounds or strenuous activity x24 hours. Diet:: Small light meals x24 hours Discharge Orders Discharge Orders: Discharge Order (Routine); Ordered 04/09/20 Ordered By: Alejandrina Cortes Discharge Data Discharge Date/Time-TO BE ENTERED AT DEPARTURE: 04/09/20 09:50
== END 2020-04-09 09:50 | disposition home or self-care (01) ==
PROVIDERS: PCP Nurse Practitioner; Visit Provider Surgery
PROC: 0DJD8ZZ Inspection of Lower Intestinal Tract, Via Natural or Artificial Opening Endoscopic (ICD-10-PCS; CPT 45378; principal; 2020-04-09 08:30)
DX: Z12.11 Encounter for screening for malignant neoplasm of colon (principal); Z87.19 Personal history of other diseases of the digestive system; K52.9 Noninfective gastroenteritis and colitis, unspecified
CPT/HCPCS: 45378; J2001

== ENCOUNTER 2020-11-02 02:20 | Outpatient (CLI) | payer BC, SELFPAY ==
--- NOTE | 2020-11-02 | DI.US_ITS ---
EXAM: US SOFT TISSUE EXTREMITY CLINICAL HISTORY: SOFT TISSUE MASS LEFT UPPER MEDIAL ARM. TECHNIQUE: Ultrasound was performed using standard protocol. COMPARISON: No exams were available for comparison FINDINGS: Sonographic assessment utilizing grayscale and color Doppler imaging was performed and targeted to th e area of clinical concern. Sonography of the left upper extremity was performed in the area of concern. No suspicious cystic or solid masses are seen. The right upper extremity in the same area was evaluated for comparison. No gross abnormality is identified. IMPRESSION: Unremarkable targeted left upper extremity ultrasound. No sonographic evidence of a mass. DATA REPOSITORY:
--- NOTE | 2020-11-02 10:20 | DI.US_ITS ---
EXAM: US SOFT TISSUE EXTREMITY CLINICAL HISTORY: Painful lump posterior left thigh.. TECHNIQUE: Ultrasound was performed using standard protocol. COMPARISON: US US SOFT TISSUE EXTREMITY from 11/02/2020 FINDINGS: Sonographic assessment utilizing grayscale and color Doppler imaging was performed and targeted to th e area of clinical concern. In the medial aspect of the left thigh 2 subcutaneous round echogenic masses are identified. They me asure 0.4 cm and 0.5 cm. Sonographically they appear consistent with lipomas. The right medial thig h was evaluated for comparison and is unremarkable. IMPRESSION: Two small lipomas seen in the medial left thigh. DATA REPOSITORY:
== END 2020-11-02 02:21 | disposition home or self-care (01) ==
LOC: DI 02:20
PROVIDERS: PCP Nurse Practitioner; Visit Provider Nurse Practitioner
DX: D17.24 Benign lipomatous neoplasm of skin and subcutaneous tissue of left leg (principal); R22.32 Localized swelling, mass and lump, left upper limb
CPT/HCPCS: 76881

== ENCOUNTER 2020-11-04 00:56 | Emergency (ER) | payer BC, SELFPAY ==
[2020-11-04] VITALS (42 sets, daily range): BP systolic 114–127; BP diastolic 58–76; PULSE 66–97; RESP 10–21; TEMP 36.2; O2SAT 97–100
--- NOTE | 2020-11-04 00:45 | RT.EKG_ITS ---
APPROVED REPORT Exam: Resting ECG Patient Location: E HR:68 bpm ECG Measurements Heart Rate [address] 128 P 68 QRSd 104 QRS 75 QT 421 T 54 QTc 449 Conclusion Sinus rhythm...normal P axis, V-rate 60- 99 Normal [place] Normal Electrocardiogram
--- NOTE | 2020-11-04 01:02 | ED.GENADUL_ITS ---
Discharge Plan Disposition Patient Disposition: HOME Condition: Good Discharge Details Clinical Impression: Acute epigastric pain Primary Care Provider: Brooke Ann ED Provider: Christopher Erwin [place] Meds and New Rx's Prescriptions: New omeprazole magnesium 20 mg tablet,delayed release (DR/EC) 20 mg PO DAILY Qty: 30 RF: 0 Continued epinephrine [EpiPen 2-Paulino] 0.3 mg/0.3 mL auto-injector 0.3 mg IM ONCE Qty: 2 RF: 12 estradiol 0.5 mg tablet 0.5 mg PO DAILY Qty: 90 RF: 3 multivitamin [Daily Multi-Vitamin] 1 EACH tablet 1 ea PO DAILY RF: 0 acetaminophen 500 mg Tablet 1,000 mg PO Q6H PRNRF: 0 bupropion HCl [Wellbutrin SR] 100 mg tablet sustained-release 12 hr 100 mg PO DAILY Qty: 90 RF: 3 albuterol sulfate [Proventil HFA] 90 mcg/actuation HFA aerosol inhaler 1 - 2 puff IH Q6H PRN (Reason: shortness of breath or wheezing) Qty: 18 RF: 5 fluticasone propionate 110 mcg/actuation HFA aerosol inhaler 2 puff IH BID Qty: 12 RF: 4 trazodone 50 mg tablet 50 mg PO HS PRN (Reason: insomnia) Qty: 90 RF: 1 cyclobenzaprine 5 mg tablet 5 mg PO TID PRN (Reason: muscle spasm) Qty: 60 RF: 0 Discharge Instructions Instructions: Epigastric Pain (ED) Additional Instructions: EKG, cardiac enzymes, CT scan are all fine. Symptoms resolved with treatment for acid related problems. Lipase is quite elevated suggesting possible pancreatitis but CT scan shows no evidence of same and pain from pancreatitis unlikely to resolve without pain medication which you did not receive here. Would recommend a bland diet over the next few days. Discontinue use of nonsteroidals and use Tylenol if needed for pain. Avoid caffeine, alcohol for the time being. Start omeprazole for treatment of acid related disease. Follow-up with primary care this coming week. Return to ED if you develop worsening pain, fever, vomiting, chest pain, shortness of breath. Referrals: Brooke Ann, [facility] [Primary Care Provider] - Medical Decision Making 55-year-old female presenting with epigastric/chest/back pain that woke her from sleep. Associated with lightheadedness and nausea. No shortness of breath. No pleuritic component. EKG is normal. Vital signs are normal. Benign abdomen. Consider ACS, dissection, pancreatitis, acid related stomach disease, less likely PE. IV established and laboratory studies sent. Will obtain CT of chest abdomen pelvis. 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 02:15 - Patient's initial work-up is unremarkable. Laboratory studies are fine. Troponin negative. CT chest abdomen pelvis normal. Symptoms resolved with GI cocktail and IV Zofran. We will still plan repeat EKG and troponin at 4:15 AM. Will give IV Protonix now. 04:45 - Repeat troponin and EKG normal. Patient continues to feel well. No recurrent pain. Lipase did return markedly elevated above 2000. However, CT scan showed a normal pancreas. Patient also now pain-free and nausea free with only management consisting of antiemetic, GI cocktail and IV PPI. I suspect her pain is due to to acid related disease and not pancreatitis per se. We will have her stick with a bland diet over the next few days. We did discuss the possibility of pancreatitis and to return if she develops fever, worsening pain, vomiting. I will start her on oral PPI. She tends to use a fair amount of nonsteroidals for musculoskeletal pain. She will need to decrease the use of nonsteroidals and consider using Tylenol instead. Follow-up with primary care this week. Medical Records Medical records reviewed: Yes I reviewed the patient's medical records. Lab Data Lab results reviewed: Yes I reviewed the patient's lab results. ECG Data Attestation: I personally reviewed and interpreted this ECG (s) as follows: Interpretation: see EKG HPI General Mode of arrival: ambulatory . Date/Time Provider Initiated Documentation: 11/04/20 00:57 . Limitations to Documentation: no limitations . Information obtained by: patient, RN notes reviewed and old records reviewed . HPI Narrative: Patient presents to the ED with epigastric/chest pain that woke her up from sleep. Some radiation to the back. Slight radiation to left arm. No shortness of breath. Significant nausea and lightheadedness but no vomiting. Never actually passed out. Does not feel short of breath. Denies any leg pain or leg swelling. No prior history of cardiac disease or pulmonary embolus. Has not been ill and denies fever, cough, URI symptoms. Symptoms started around midnight. She has never had something like this previously. Most of her discomfort appears to be epigastric. Related Data Home Medications Medication Instructions Recorded Confirmed multivitamin [Daily Multi-Vitamin] 1 ea PO DAILY 07/27/15 10/03/20 acetaminophen 1,000 mg PO Q6H PRN 12/15/18 10/03/20 bupropion HCl 100 mg tablet,12 hr 100 mg PO DAILY #90 tab 04/07/19 10/03/20 sustained-release epinephrine 0.3 mg/0.3 mL 0.3 mg IM ONCE #2 pen 10/19/19 10/03/20 injection, auto-injector albuterol sulfate 90 mcg/actuation 1 - 2 puff IH Q6H PRN #18 gm 12/19/19 10/03/20 aerosol inhaler fluticasone propionate 110 2 puff IH BID #12 gm 12/19/19 10/03/20 mcg/actuation HFA aerosol inhaler trazodone 50 mg tablet 50 mg PO HS PRN #90 tab 03/12/20 10/03/20 cyclobenzaprine 5 mg tablet 5 mg PO TID PRN #60 tab-cap 08/03/20 10/03/20 estradiol 0.5 mg tablet 0.5 mg PO DAILY #90 tab 10/03/20 10/03/20 omeprazole magnesium 20 mg PO DAILY #30 tab 11/04/20 Previous Rx's Medication Instructions Recorded bupropion HCl 100 mg tablet,12 hr 100 mg PO DAILY #90 tab 04/07/19 sustained-release epinephrine 0.3 mg/0.3 mL 0.3 mg IM ONCE #2 pen 10/19/19 injection, auto-injector albuterol sulfate 90 mcg/actuation 1 - 2 puff IH Q6H PRN #18 gm 12/19/19 aerosol inhaler fluticasone propionate 110 2 puff IH BID #12 gm 12/19/19 mcg/actuation HFA aerosol inhaler trazodone 50 mg tablet 50 mg PO HS PRN #90 tab 03/12/20 cyclobenzaprine 5 mg tablet 5 mg PO TID PRN #60 tab-cap 08/03/20 estradiol 0.5 mg tablet 0.5 mg PO DAILY #90 tab 10/03/20 omeprazole magnesium 20 mg PO DAILY #30 tab 11/04/20 Allergies Allergy/AdvReac Type Severity Reaction Status Date / Time morphine Allergy itchy Verified 11/04/20 01:09 levalbuterol [From Xopenex] AdvReac Mild PARESTHESIA Verified 11/04/20 01:09 clindamycin AdvReac Verified 11/04/20 01:09 latex AdvReac wheezing Verified 11/04/20 01:09 when exposed 20 years ago, no issues since General VONDA: 2 Review of Systems Narrative: 07/11 Review of Systems completed and is negative except as stated above in HPI (Systems reviewed: Const, Eyes, ENT, Resp, CV, GI, , MSK, Skin, Neuro) [facility] Medical History Anxiety and depression asthma Chronic diarrhea both in frequency adn consistency Depression (03/10/17) Hx of Clostridium difficile infection 06/2018 IBS (irritable bowel syndrome) Migraine Sicca syndrome, Sjogren's (1966) Surgical History Appendectomy 2007 Colonoscopy w/ bx (03/18/06) excisional biopsy (01/17/02) -skin of thigh,left anterior -skin of inguinal fold,left -skin of abdomen,left -skin of forearm,left anterior Hysterectomy, Laproscopic (01/08/11) benign S/P cholecystectomy 07/22/18 [facility] Surgical Services Family History Mother Osteoporosis Father Diabetes Personal history of malignant neoplasm Non-Hodgkins lymphoma ~2006 Melanoma Sister Breast cancer Ductal carcinoma in situ at age 46 Sister No problems noted. Sister No problems noted. Brother No problems noted. Brother No problems noted. Son No problems noted. Daughter No problems noted. Grandmother Diabetes paternal grandmother Grandfather No problems noted. 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 HEENT: NC/AT. Normal facial exam. Eyes: Normal conjunctiva and sclera. Neck: Supple. Trachea midline. Lungs: Normal respiratory effort. Lungs are clear. Cor: RRR without murmur/gallop. Good radial pulses. GI: Soft. NT/ND. No guarding or rebound. Neuro: A+O x 3. Normal speech, mentation, gait. Cranial nerves II - XII grossly intact. No gross motor or sensory deficit. Ext: No C/C/E. No calf tenderness. Skin: Warm and dry without rash.
--- NOTE | 2020-11-04 01:15 | DI.CT_ITS ---
EXAM: CT CHEST PE ABD PELVIS W CLINICAL HISTORY: chest/back/abdominal pain. TECHNIQUE: Imaging Protocol: Axial CT angiography was performed with multi-slice acquisition and mu lti-planar and/or 3D reconstructions. CONTRAST MATERIAL: Intravenous: Omnipaque 350 Contrast volume:structured data in ml COMPARISON: No exams were available for comparison FINDINGS: CHEST: Pulmonary Arteries: No evidence of filling defect to suggest pulmonary emboli. Tracheobronchial tree: Patent where visualized. Mediastinum and Jacklyn: No dominant adenopathy or fluid collection. There is artifact in the superior m ediastinum due to the contrast but there do appear to be prominent right paratracheal lymph nodes. Pulmonary parenchyma: No consolidation or dominant measurable mass. There is atelectasis in the lung bases bilaterally. Pleura: No effusion or pneumothorax. Heart: The heart is not dilated. No coronary artery calcifications are seen. No pericardial effusion. Aorta: Thoracic aorta non-dilated. No dissection. Bones: Normal. Soft tissues: Bilateral breast implants. ABDOMEN: Liver: Normal density. Multiple hepatic cysts. The largest is in the left lobe measures 2.9 cm. Portal, Superior Mesenteric, and Splenic Veins: Unremarkable. Gallbladder and Biliary Tract: Status post cholecystectomy. The extrahepatic duct measures up to 1.3 cm. This can be seen following cholecystectomy. Pancreas: Normal density, no abnormal calcifications or inflammatory process. Spleen: Normal. Adrenals: No masses seen. Kidneys: Normal size, contour and axis. No radiodense stones or obstructive uropathy. No masses seen. Abdominal Aorta: Abdominal portion non-dilated. Bowel: No obstruction or bowel wall thickening. No evidence of appendicitis. Peritoneal Cavity: No ascites, collection or mesenteric inflammatory response. Lymph Nodes: Within normal limits. Bones: Unremarkable. Soft Tissues: Unremarkable. PELVIS: Bladder: Symmetric distention, no gross wall thickening. Reproductive Organs: Status post hysterectomy. Lymph Nodes: Within normal limits. Bones: Within normal limits. IMPRESSION: 1. No evidence of pulmonary embolism, thoracic aortic dissection or aneurysm. 2. Artifact in the superior mediastinum due to the contrast material, but there do appear to be promi nent right paratracheal lymph nodes. These are nonspecific. Follow-up as clinically appropriate. 3. No acute abdominal or pelvic process. 4. Prominence of the bile ducts. This can be seen following cholecystectomy. Correlation with patient 's clinical history and laboratory values is suggested to exclude obstruction. RADIATION DOSE DELIVERED: 1,051.96mGy.cm Total DLP 1,051.96mGy.cm Total DLP DATA REPOSITORY: All CT scans at this facility are submitted to the National Radiology Data Registry (NRDR) Dose Index Registry (DIR) with the [employer] (ACR). RADIATION OPTIMIZATION: All CT scans at this facility use at least one of these dose optimization te chniques: automated exposure control; mA and/or kV adjustment per patient size (includes targeted exa ms where dose is matched to clinical indication); or iterative reconstruction.
[2020-11-04] MEDS: Ondansetron 4 MG/2 ML VIAL IVP (01:24)
[2020-11-04] MEDS: Lactated Ringers 1,000 ML 1000 ML IV (01:27)
[2020-11-04] MEDS: Omnipaque 350 MG/ML 100 ML BTL IJ (01:46)
[2020-11-04] MEDS: Normal Saline - Diluent 50 ML VIAL IV (01:46)
[2020-11-04 01:52] LABS: Abs Immature Grans 0.03 10^3/uL (0.0-0.06); Absolute Basophil Count 0.07 10^3/uL (0.0-0.2); Absolute Eosinophil Count 0.42 10^3/uL (0.0-0.7); Absolute Lymphocyte Count 4.58 10^3/uL (1.2-3.4); Absolute Neutrophil Count 5.26 10^3/uL (1.2-6.7); Basophils % 0.6; Eosinophils % 3.8; HCT 37.1 % (36.0-46.0); HGB 12.4 g/dL (11.2-15.7); Immature Grans % 0.3; Lymphocytes % 41.4; MCH 31.6 pg (27.0-33.0); MCHC 33.4 % (32.0-36.0); MCV 94.6 fL (80-95); MPV 11.1 fL (8.0-11.0); Monocytes % 6.3; Neutrophils % 47.6; Nucleated RBC 0 %; Platelet Count 205 10^3/uL (130-400); RBC 3.92 10^6/uL (3.93-5.22); RDW 12.4 % (11.7-14.6); RDW-SD 43.3 fL; WBC 11.06 10^3/uL (4.4-10.8)
--- NOTE | 2020-11-04 02:00 | DI.VRAD_ITS ---
PROCEDURE INFORMATION: Exam: CT Angiography Chest With Contrast Exam date and time: 11/04/2020 1:34 AM Age: 55 years old Clinical indication: Epigastric; Chest pain; Type not specified; Patient HX: Chest/back/abdominal pain TECHNIQUE: Imaging protocol: Computed tomographic angiography of the chest with contrast. 3D rendering (Not supervised by radiologist): MIP and/or 3D reconstructed images were created by the technologist. COMPARISON: CR XR CHEST 2V PA LATERAL 07/18/2018 8:44 PM FINDINGS: Pulmonary arteries: Normal. No pulmonary emboli. Aorta: Unremarkable. No aortic aneurysm. No aortic dissection. Lungs: Unremarkable. No consolidation. No masses. Pleural spaces: Unremarkable. No pneumothorax. No pleural effusion. Heart: Unremarkable. No cardiomegaly. No pericardial effusion. Lymph nodes: Unremarkable. No enlarged lymph nodes. Bones/joints: Unremarkable. No acute fracture. Soft tissues: Unremarkable. IMPRESSION: No acute findings. PROCEDURE INFORMATION: Exam: CT Abdomen And Pelvis With Contrast Exam date and time: 11/04/2020 1:34 AM Age: 55 years old Clinical indication: Epigastric; Chest pain; Type not specified; Patient HX: Chest/back/abdominal pain TECHNIQUE: Imaging protocol: Computed tomography of the abdomen and pelvis with contrast. COMPARISON: CR XR CHEST 2V PA LATERAL 07/18/2018 8:44 PM FINDINGS: Liver: Left hepatic cyst. Gallbladder and bile ducts: Status post cholecystectomy. Mild prominence of the biliary ducts status post cholecystectomy, can be an expected postsurgical finding with correlation with patient labs to exclude obstruction if clinically indicated. Pancreas: Normal. No ductal dilation. Spleen: Normal. No splenomegaly. Adrenal glands: Normal. No mass. Kidneys and ureters: Normal. No hydronephrosis. Stomach and bowel: Unremarkable. No obstruction. No mucosal thickening. Appendix: No evidence of appendicitis. Intraperitoneal space: Unremarkable. No free air. No significant fluid collection. Vasculature: Unremarkable. No abdominal aortic aneurysm. Lymph nodes: Unremarkable. No enlarged lymph nodes. Urinary bladder: Unremarkable as visualized. Reproductive: Status post hysterectomy. Bones/joints: Unremarkable. No acute fracture. Soft tissues: Unremarkable. IMPRESSION: No acute finding. Dictated and Authenticated by: Tony Harris MD. Ordering:GULSHAN White MD
[2020-11-04 02:03] LABS: ALT 30 U/L (14-59); AST 35 U/L (15-37); Albumin 3.7 g/dL (3.4-5.0); Alkaline Phosphatase 65 U/L (46-116); Anion Gap 9.9 mmol/L (3-11); BUN 16 mg/dL (7-18); Bilirubin, Total 0.2 mg/dL (0.2-1.0); CO2 26.1 mmol/L (21.0-32.0); CREATININE 0.9 mg/dL (0.55-1.02); Calcium 8.8 mg/dL (8.5-10.1); Chloride 104 mmol/L (98-107); Glucose 120 mg/dL (74-106); Potassium 3.4 mmol/L (3.5-5.1); Sodium 140 mmol/L (136-145); Total Protein 7.1 g/dL (6.4-8.2)
[2020-11-04 02:07] LABS: Troponin I < 0.05 ng/mL (<0.06)
[2020-11-04 02:31] LABS: Lipase 2094 U/L (73-393)
[2020-11-04] MEDS: Pantoprazole 40 MG VIAL IVP (02:40)
--- NOTE | 2020-11-04 04:00 | RT.EKG_ITS ---
APPROVED REPORT Exam: Resting ECG Patient Location: E HR:71 bpm ECG Measurements Heart Rate 71 AXIS MN 128 P 72 QRSd 96 QRS 76 QT 405 T 62 QTc 440 Conclusion Sinus rhythm...normal P axis, V-rate 60- 99 Normal [place] Normal Electrocardiogram
[2020-11-04 04:41] LABS: Troponin I < 0.05 ng/mL (<0.06)
== END 2020-11-04 05:10 | disposition home or self-care (01) ==
PROVIDERS: Emergency Provider Emergency Medicine; PCP Nurse Practitioner
DX: R10.13 Epigastric pain (principal); R74.8 Abnormal levels of other serum enzymes; R42 Dizziness and giddiness; R11.0 Nausea
CPT/HCPCS: 36415; 71275; 74177; 80053; 83690; 93005; 96361; 96374; 96375; 99285; 83735; 84484; 85025; 93010; J2405; J3490

== ENCOUNTER 2020-11-09 00:42 | Outpatient (CLI) | payer BC, SELFPAY ==
[2020-11-09 12:42] LABS: Lipase 202 U/L (73-393)
[2020-11-09 12:57] LABS: Calculated LDL 92 mg/dL (<100); Cholesterol 208 mg/dL (<200); HDL Cholesterol 86 mg/dL (40-60); Triglyceride 150 mg/dL (<150)
[2020-11-14 11:24] LABS: Misc Referral (MAYO) See Comments
== END 2020-11-09 00:43 | disposition home or self-care (01) ==
LOC: LOS 00:42
PROVIDERS: Internal Medicine; PCP Nurse Practitioner; Visit Provider Nurse Practitioner
DX: Z13.220 Encounter for screening for lipoid disorders (principal)
CPT/HCPCS: 36415; 80061; 82784; 82787; 83690

== ENCOUNTER 2021-01-09 03:16 | Outpatient (CLI) | payer BC, SELFPAY ==
[2021-01-09 14:11] LABS: Abs Immature Grans 0.01 10^3/uL (0.0-0.06); Absolute Basophil Count 0.06 10^3/uL (0.0-0.2); Absolute Lymphocyte Count 1.58 10^3/uL (1.2-3.4); Absolute Neutrophil Count 4.59 10^3/uL (1.2-6.7); Basophils % 0.9; Eosinophils % 4.3; HCT 40.3 % (36.0-46.0); HGB 13.1 g/dL (11.2-15.7); Immature Grans % 0.1; Lymphocytes % 22.8; MCH 30.8 pg (27.0-33.0); MCHC 32.5 % (32.0-36.0); MCV 94.8 fL (80-95); MPV 11.5 fL (8.0-11.0); Monocytes % 5.8; Neutrophils % 66.1; Nucleated RBC 0 %; Platelet Count 180 10^3/uL (130-400); RBC 4.25 10^6/uL (3.93-5.22); RDW 12.6 % (11.7-14.6); RDW-SD 44.2 fL; WBC 6.94 10^3/uL (4.4-10.8)
[2021-01-09 14:14] LABS: ESR 7 mm//hr (0-30)
--- NOTE | 2021-01-09 14:19 | DI.RAD_ITS ---
EXAM: XR HIP PELVIS ADULT BL CLINICAL HISTORY: CHRONIC PAIN BOTH HIPS,M25.551,M25.552,G89.29,PAROTITIS NOT DUE TO MUMPS,. TECHNIQUE: 2D digital imaging was performed. COMPARISON: No exams were available for comparison FINDINGS: There is no evidence of pelvic or hip fracture. No degenerative changes in either hip. No radiograp hic evidence of avascular necrosis either hip. Mild increased density around the left SI joint is no anahi. No ankylosis. Right SI joint appears unremarkable. No osseous lesions. Incidentally noted is a calcific density in left side of the pelvis which measures 1.2 x 0.7 cm. Possibly calculus. IMPRESSION: No significant radiograph findings in either hip. Other findings as above. DATA REPOSITORY: RADIATION DOSE DELIVERED:
[2021-01-09 15:33] LABS: ALT 38 U/L (14-59); AST 29 U/L (15-37); Albumin 3.8 g/dL (3.4-5.0); Alkaline Phosphatase 64 U/L (46-116); Bilirubin, Direct 0.1 mg/dL (0.0-0.2); Bilirubin, Total 0.2 mg/dL (0.2-1.0); C-Reactive Protein 0.27 mg/dL (0.0-0.3); CREATININE 0.8 mg/dL (0.55-1.02)
== END 2021-01-09 03:17 | disposition home or self-care (01) ==
LOC: LBO 03:16
PROVIDERS: PCP Nurse Practitioner; Visit Provider Internal Medicine
DX: M25.551 Pain in right hip (principal); M25.552 Pain in left hip; G89.29 Other chronic pain; M53.3 Sacrococcygeal disorders, not elsewhere classified; K11.20 Sialoadenitis, unspecified; G62.9 Polyneuropathy, unspecified
CPT/HCPCS: 36415; 73521; 80076; 85652; 82565; 85025; 86140

== ENCOUNTER 2021-05-27 01:10 | Emergency (ER) | payer BC, SELFPAY ==
[2021-05-27 01:15] VITALS: BP 115/66; PULSE 79; RESP 16; TEMP 36.8; O2SAT 98
--- NOTE | 2021-05-27 01:15 | DI.CT_ITS ---
Exam(s) CT ABDOMEN PELVIS W EXAM: CT ABDOMEN PELVIS W CLINICAL HISTORY: abdomen pain TECHNIQUE: Imaging Protocol: Axial computed tomography images with coronal and sagittal reformatted images were created and reviewed CONTRAST MATERIAL: Intravenous: Omnipaque 350 Contrast volume:90 mL Oral: No COMPARISON: CT CT CHEST PE ABD PELVIS W from 11/04/2020 FINDINGS: ABDOMEN: Lung Bases: Partial imaging of the patient's bilateral breast implants is noted. Liver: Normal density. There are stable hepatic cysts. Portal, Superior Mesenteric, and Splenic Veins: Unremarkable. Gallbladder and Biliary Tract: Status post cholecystectomy. Unchanged intra and extrahepatic bile du cts. This likely reflects the reservoir effect following cholecystectomy. Pancreas: Normal density, no abnormal calcifications or inflammatory process. Spleen: Normal. Adrenals: No masses seen. Kidneys: Normal size, contour and axis. No radiodense stones or obstructive uropathy. No masses seen. Abdominal Aorta: Abdominal portion non-dilated. Bowel: No obstruction or bowel wall thickening. No evidence of appendicitis. Peritoneal Cavity: No ascites, collection or mesenteric inflammatory response. No free air. Lymph Nodes: Within normal limits. Bones: Within normal limits for the patient's age. Soft Tissues: Unremarkable. PELVIS: Bladder: No gross abnormality. Reproductive Organs: Unremarkable as visualized. Lymph Nodes: Within normal limits. Bones: Within normal limits for the patient's age. IMPRESSION: No acute abdominal or pelvic process. Follow-up as clinically appropriate. RADIATION DOSE DELIVERED: 759.03mGy.cm Total DLP DATA REPOSITORY: All CT scans at this facility are submitted to the National Radiology Data Registry (NRDR) Dose Index Registry (DIR) with the [employer] (ACR). RADIATION OPTIMIZATION: All CT scans at this facility use at least one of these dose optimization te chniques: automated exposure control; mA and/or kV adjustment per patient size (includes targeted exa ms where dose is matched to clinical indication); or iterative reconstruction.
--- NOTE | 2021-05-27 01:24 | ED.GENADUL_ITS ---
Discharge Plan Disposition Patient Disposition: HOME Condition: Stable Discharge Details Clinical Impression: Abdominal pain, Nausea, Enteritis Primary Care Provider: Brooke Ann ED Provider: Tony Bach Home Meds and New Rx's Prescriptions: New ondansetron 4 mg tablet,disintegrating 4 mg PO Q8H PRN (Reason: nausea and vomiting) Qty: 30 RF: 0 Continued epinephrine [EpiPen 2-Paulino] 0.3 mg/0.3 mL auto-injector 0.3 mg IM ONCE Qty: 2 RF: 12 naproxen 500 mg tablet 500 mg PO BID PRN (Reason: pain) Qty: 60 RF: 0 cyclobenzaprine 5 mg tablet 5 mg PO TID PRN (Reason: muscle spasm) Qty: 60 RF: 0 multivitamin [Daily Multi-Vitamin] 1 EACH tablet 1 ea PO DAILY RF: 0 acetaminophen 500 mg Tablet 1,000 mg PO Q6H PRNRF: 0 ibuprofen 800 mg Tablet 800 mg PO TID PRN PRNRF: 0 omeprazole magnesium 20 mg tablet,delayed release (DR/EC) 20 mg PO DAILY Qty: 30 RF: 0 Discharge Instructions Instructions: Acute Nausea and Vomiting (ED), Abdominal Pain (ED) Additional Instructions: your blood work did not show any concerning findings at the present time your cat scan showed possible mild inflammation of the bowels follow up with your primary care provider within 1-2 weeks if you feel more ill, have severe worsening pain or persistent vomit return to the emergency department Medical Decision Making 55 yo female with hx of ibs, prior cholecystectomy, being worked up for sjogren's syndrome per patient, who comes in with 3 days of right sided abdomen pain for 3 days. She can't think of anything that makes it better or worse. She has had nausea, no vomit. She states she feels like she is bloated. Denies fevers, chills, chest pain, shortness of breath. She localizes the pain to the right upper abdomen and is tender in the right upper with light and deep palpation and also minimally tender in the right lower abdomen. Was seen in October for similar pain and had lipase of 1999 but pain resolved and was discharged. She denies smoking and hasn't had alcohol in over 2 weeks and denies drinking daily or heavily. Given symptoms and location of pain will obtain labs and ct to evaluate for possible pancreatitis, hepatitis and sbo, less likely appendicitis. labs unremarkable and her ct shows nonspecific enteritis otherwise no acute findings. She feels significantly better with minimal tenderness in ruq, no guarding. She does state she had diarrhea yesterday so could have had an enteritis. Advised to continue her ppi and follow up with her pcp, return precautions given Differential Diagnosis Differential Diagnosis: pancreatitis, hepatitis, sbo Medical Records Medical records reviewed: Yes I reviewed the patient's medical records. Imaging Data Radiologic Study: Attestation: I personally reviewed and interpreted this imaging study as follows: Imaging: CT Scan Radiologist's impression: IMPRESSION: Nonspecific nonobstructed bowel gas pattern which may represent mild enteritis Grossly stable biliary ductal dilatation in this patient with prior cholecystectomy which may be related to reservoir effect. No calcified stones Lab Data Lab results reviewed: Yes I reviewed the patient's lab results. HPI General Mode of arrival: ambulatory . Date/Time Provider Initiated Documentation: 05/27/21 01:14 . Limitations to Documentation: no limitations . Information obtained by: patient . History of Present Illness 55 year old F presents to the emergency department with the chief complaint of abdomen pain, described as moderate, Quality is described as sharp, and is localized to the abdomen. Patient started experiencing this day(s) (3) and it has been constant. No relieving factors improve symptom(s), No exacerbating factors reported . Patient notes other (nausea). Patient did receive the following treatments prior to arrival, none Related Data Home Medications Medication Instructions Recorded Confirmed multivitamin [Daily Multi-Vitamin] 1 ea PO DAILY 07/27/15 05/27/21 acetaminophen 1,000 mg PO Q6H PRN 12/15/18 05/27/21 epinephrine 0.3 mg/0.3 mL 0.3 mg IM ONCE #2 pen 10/19/19 05/27/21 injection, auto-injector omeprazole magnesium 20 mg PO DAILY #30 tab 11/04/20 05/27/21 cyclobenzaprine 5 mg tablet 5 mg PO TID PRN #60 tab-cap 04/11/21 05/27/21 naproxen 500 mg tablet 500 mg PO BID PRN #60 tab 04/11/21 05/27/21 ibuprofen 800 mg PO TID PRN PRN 05/27/21 05/27/21 ondansetron 4 mg PO Q8H PRN #30 tab 05/27/21 Previous Rx's Medication Instructions Recorded epinephrine 0.3 mg/0.3 mL 0.3 mg IM ONCE #2 pen 10/19/19 injection, auto-injector omeprazole magnesium 20 mg PO DAILY #30 tab 11/04/20 cyclobenzaprine 5 mg tablet 5 mg PO TID PRN #60 tab-cap 04/11/21 naproxen 500 mg tablet 500 mg PO BID PRN #60 tab 04/11/21 ondansetron 4 mg PO Q8H PRN #30 tab 05/27/21 Allergies Allergy/AdvReac Type Severity Reaction Status Date / Time morphine Allergy itchy Verified 05/27/21 01:51 levalbuterol [From Xopenex] AdvReac Mild PARESTHESIA Verified 05/27/21 01:51 clindamycin AdvReac Verified 05/27/21 01:51 latex AdvReac wheezing Verified 05/27/21 01:51 when exposed 20 years ago, no issues since General VONDA: 2 Review of Systems All systems reviewed & are unremarkable except as noted in HPI and below Constitutional Constitutional: Denies chills, Denies fever(s) and Denies weakness Cardiovascular Cardiovascular: Denies chest pain and Denies dyspnea Respiratory Respiratory: Denies cough and Denies dyspnea Gastrointestinal Gastrointestinal: Denies vomiting Musculoskeletal Musculoskeletal: Denies joint swelling Neurologic Neurologic: Denies weakness [facility] Medical History (Updated 05/27/21 @ 02:45 by Tony Bach MD) Anxiety and depression asthma Chronic diarrhea both in frequency adn consistency Depression (03/10/17) Hx of Clostridium difficile infection 06/2018 IBS (irritable bowel syndrome) Migraine Sialoadenitis Sicca syndrome, Sjogren's (1966) Surgical History Appendectomy 2007 Colonoscopy w/ bx (03/18/06) excisional biopsy (01/17/02) -skin of thigh,left anterior -skin of inguinal fold,left -skin of abdomen,left -skin of forearm,left anterior Hysterectomy, Laproscopic (01/08/11) benign S/P cholecystectomy 07/22/18 [facility] Family History Mother Osteoporosis Father Diabetes Personal history of malignant neoplasm Non-Hodgkins lymphoma ~2006 Melanoma Sister Breast cancer Ductal carcinoma in situ at age 46 Sister No problems noted. Sister No problems noted. Brother No problems noted. Brother No problems noted. Son No problems noted. Daughter No problems noted. Grandmother Diabetes paternal grandmother Grandfather No problems noted. 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 What is your relationship status?: living with partner Panel score (0-1 are the most socially isolated patients): 1 What type of physical activity do you participate in: regular exercise Seatbelt use: always Drive intox or ride w/intox local delivery driver: No Working smoke detector in home: Yes Carbon monox detector in home: Yes Do you feel safe at home: Yes Do you feel safe in your relationship?: Yes Exam Const General: no acute distress Orientation: alert HENMT Head: normal to inspection Ears: external ears normal General nose exam: external nose normal Mouth: moist mucous membranes Eyes General: appearance normal, both eyes and all related structures Neck Neck: normal visual inspection Resp Effort & Inspection: normal respiratory effort and able to speak in complete sentences Cardio Rate: regular rate GI Palpation: soft and not firm Skin General skin exam: no rashes or lesions noted Neuro General: patient alert and patient oriented x3 Extrem General: normal to inspection Psych Mental Status: mental status grossly normal
[2021-05-27 01:40] LABS: Bilirubin Negative (Negative); Blood Negative (Negative); Clarity Sl Cloudy (Clear); Glucose Negative (Negative); Ketones Trace mg/dL (Negative); Leukocyte Esterase Negative (Negative); Nitrite Negative (Negative); Specific Gravity >= 1.030 (1.005-1.025); Urobilinogen 0.2 EU/dL (Up TO 0.2); pH 6.5 (5-8)
[2021-05-27 01:40] LABS: Abs Immature Grans 0.02 10^3/uL (0.0-0.06); Absolute Basophil Count 0.02 10^3/uL (0.0-0.2); Absolute Eosinophil Count 0.11 10^3/uL (0.0-0.7); Absolute Lymphocyte Count 1.42 10^3/uL (1.2-3.4); Absolute Monocyte Count 0.29 10^3/uL (0.1-0.8); Absolute Neutrophil Count 4.08 10^3/uL (1.2-6.7); Basophils % 0.3; Eosinophils % 1.9; HCT 39.3 % (36.0-46.0); HGB 12.9 g/dL (11.2-15.7); Immature Grans % 0.3; Lymphocytes % 23.9; MCH 30.8 pg (27.0-33.0); MCHC 32.8 % (32.0-36.0); MCV 93.8 fL (80-95); MPV 11.1 fL (8.0-11.0); Monocytes % 4.9; Neutrophils % 68.7; Nucleated RBC 0 %; Platelet Count 155 10^3/uL (130-400); RBC 4.19 10^6/uL (3.93-5.22); RDW-SD 44.4 fL; WBC 5.94 10^3/uL (4.4-10.8)
[2021-05-27] MEDS: Omnipaque 350 MG/ML 100 ML BTL IJ (01:44)
[2021-05-27 01:49] LABS: Magnesium 1.6 mg/dL (1.8-2.4)
[2021-05-27 01:52] LABS: ETHANOL BLOOD < 3.0 mg/dL (<3)
[2021-05-27] MEDS: Normal Saline 1,000 ML 1000 ML IV (01:57)
[2021-05-27] MEDS: Ondansetron 4 MG/2 ML VIAL IVP (01:57)
[2021-05-27] MEDS: Ketorolac 15 MG/ML VIAL IVP (01:59)
[2021-05-27] MEDS: Normal Saline Flush 10 ML SYR IVP (02:00)
[2021-05-27 02:06] LABS: ALT 81 U/L (14-59); AST 137 U/L (15-37); Albumin 3.8 g/dL (3.4-5.0); Alkaline Phosphatase 103 U/L (46-116); Anion Gap 8.7 mmol/L (3-11); BUN 10 mg/dL (7-18); Bilirubin, Direct 0.1 mg/dL (0.0-0.2); Bilirubin, Total 0.3 mg/dL (0.2-1.0); CO2 26.3 mmol/L (21.0-32.0); CREATININE 0.9 mg/dL (0.55-1.02); Calcium 8.6 mg/dL (8.5-10.1); Chloride 106 mmol/L (98-107); Glucose 132 mg/dL (74-106); Lipase 132 U/L (73-393); Potassium 3.6 mmol/L (3.5-5.1); Sodium 141 mmol/L (136-145); Total Protein 7.2 g/dL (6.4-8.2)
--- NOTE | 2021-05-27 02:33 | DI.VRAD_ITS ---
PROCEDURE INFORMATION: Exam: CT Abdomen And Pelvis With Contrast Exam date and time: 05/27/2021 1:25 AM Age: 55 years old Clinical indication: Abdominal pain; Prior surgery; Surgery date: 6+ months; Surgery type: Cholecystectomy, appendectomy, hysterectomy; Patient HX: Pain for 4 days, epigastric, nausea TECHNIQUE: Imaging protocol: Computed tomography of the abdomen and pelvis with contrast. Radiation optimization: All CT scans at this facility use at least one of these dose optimization techniques: automated exposure control; mA and/or kV adjustment per patient size (includes targeted exams where dose is matched to clinical indication); or iterative reconstruction. Contrast material: OMNIPAQUE 350; Contrast volume: 90 ml; Contrast route: INTRAVENOUS (IV); COMPARISON: CT CHEST PE ABD PELVIS W 11/04/2020 1:31 AM FINDINGS: Bilateral breast prostheses redemonstrated Liver: Simple cysts noted, grossly stable. Intrahepatic biliary ductal dilatation Gallbladder and bile ducts: Prior cholecystectomy and severe dilatation of the common bile duct tapering distally, grossly stable presumably related to reservoir effect Pancreas: Normal. No ductal dilation. Spleen: Normal. No splenomegaly. Adrenal glands: Normal. No mass. Kidneys and ureters: Normal. No hydronephrosis. Stomach and bowel: No obstruction. Question mild small bowel thickening and mild thickening of the cecum/proximal ascending colon Appendix: Prior appendectomy Intraperitoneal space: Unremarkable. No free air. No significant fluid collection. Vasculature: Unremarkable. No abdominal aortic aneurysm. Lymph nodes: Unremarkable. No enlarged lymph nodes. Urinary bladder: Unremarkable as visualized. Reproductive: Prior hysterectomy. Bones/joints: Unremarkable. No acute fracture. Soft tissues: Unremarkable. IMPRESSION: Nonspecific nonobstructed bowel gas pattern which may represent mild enteritis Grossly stable biliary ductal dilatation in this patient with prior cholecystectomy which may be related to reservoir effect. No calcified stones Dictated and Authenticated by: Leoncio Zaragoza MD. Ordering:MARV Jimenez MD
[2021-05-27 02:45] VITALS: BP 130/61; PULSE 87; RESP 16; O2SAT 96
[2021-05-28 13:35] LABS: Hepatitis A Antibody IgM Negative (Negative); Hepatitis B Core Antibody Negative (Negative); Hepatitis B surface Ag Negative (Negative); Hepatitis C Ab w Rflx HCV PCR Negative (Negative)
== END 2021-05-27 02:55 | disposition home or self-care (01) ==
PROVIDERS: Emergency Provider Emergency Medicine; PCP Nurse Practitioner
DX: R10.11 Right upper quadrant pain (principal); R11.0 Nausea; K52.9 Noninfective gastroenteritis and colitis, unspecified; R74.01 Elevation of levels of liver transaminase levels
CPT/HCPCS: 36415; 80053; 83690; 86704; 86709; 86803; 87340; 96361; 96374; 96375; 99285; 74177; 80320; 81003; 82248; 83735; 85025; 99284; J1885; J2405; J3490

== ENCOUNTER 2021-08-28 02:42 | Outpatient (CLI) | payer BC, SELFPAY ==
[2021-08-28 16:12] LABS: Abs Immature Grans 0.02 10^3/uL (0.0-0.06); Absolute Basophil Count 0.04 10^3/uL (0.0-0.2); Absolute Eosinophil Count 0.18 10^3/uL (0.0-0.7); Absolute Lymphocyte Count 1.81 10^3/uL (1.2-3.4); Absolute Monocyte Count 0.45 10^3/uL (0.1-0.8); Basophils % 0.6; Eosinophils % 2.6; HCT 41.1 % (36.0-46.0); HGB 13.3 g/dL (11.2-15.7); Immature Grans % 0.3; Lymphocytes % 26.2; MCH 30.4 pg (27.0-33.0); MCHC 32.4 % (32.0-36.0); MCV 93.8 fL (80-95); MPV 11.3 fL (8.0-11.0); Monocytes % 6.5; Neutrophils % 63.8; Nucleated RBC 0 %; Platelet Count 208 10^3/uL (130-400); RBC 4.38 10^6/uL (3.93-5.22); RDW 13.1 % (11.7-14.6); RDW-SD 45.5 fL
[2021-08-28 16:42] LABS: ALT 30 U/L (14-59); AST 25 U/L (15-37); Albumin 4.4 g/dL (3.4-5.0); Alkaline Phosphatase 67 U/L (46-116); Bilirubin, Direct 0.1 mg/dL (0.0-0.2); Bilirubin, Total 0.3 mg/dL (0.2-1.0); C-Reactive Protein 0.55 mg/dL (0.0-0.3); CREATININE 0.7 mg/dL (0.55-1.02); Total Protein 7.6 g/dL (6.4-8.2)
[2021-08-28 17:08] LABS: ESR 10 mm/hr (0-30)
[2021-08-29 00:57] LABS: Vitamin D 25 Total 44.3 ng/mL (30-100)
[2021-08-29 18:11] LABS: Estradiol 15 pg/mL (See Note); Progesterone 0.6 ng/mL (See Table)
[2021-09-02 10:22] LABS: Testosterone, Free 0.31 ng/dL (0.06-0.90); Testosterone, Total 18 ng/dL (8-60)
== END 2021-08-28 02:43 | disposition home or self-care (01) ==
LOC: LBO 02:42
PROVIDERS: Internal Medicine; PCP Nurse Practitioner; Visit Provider Naturopath
DX: E55.9 Vitamin D deficiency, unspecified (principal); N95.1 Menopausal and female climacteric states; K11.20 Sialoadenitis, unspecified; M25.551 Pain in right hip; M25.552 Pain in left hip; G62.9 Polyneuropathy, unspecified
CPT/HCPCS: 36415; 80076; 82306; 84402; 84403; 85652; 82565; 82670; 84144; 85025; 86140

== ENCOUNTER 2022-01-03 02:51 | Outpatient (CLI) | payer BC, SELFPAY ==
[2022-01-03 12:59] LABS: ESR 1 mm/hr (0-30)
[2022-01-03 13:00] LABS: Abs Immature Grans 0.02 10^3/uL (0.0-0.06); Absolute Basophil Count 0.05 10^3/uL (0.0-0.2); Absolute Lymphocyte Count 1.79 10^3/uL (1.2-3.4); Absolute Monocyte Count 0.43 10^3/uL (0.1-0.8); Basophils % 0.7; Eosinophils % 3.9; HCT 40.1 % (36.0-46.0); HGB 13.1 g/dL (11.2-15.7); Immature Grans % 0.3; Lymphocytes % 23.3; MCH 31.3 pg (27.0-33.0); MCHC 32.7 % (32.0-36.0); MCV 95.9 fL (80-95); MPV 11.1 fL (8.0-11.0); Monocytes % 5.6; Neutrophils % 66.2; Nucleated RBC 0 %; Platelet Count 183 10^3/uL (130-400); RBC 4.18 10^6/uL (3.93-5.22); RDW 12.7 % (11.7-14.6); RDW-SD 44.9 fL; WBC 7.69 10^3/uL (4.4-10.8)
[2022-01-03 13:54] LABS: ALT 22 U/L (14-59); AST 18 U/L (15-37); Alkaline Phosphatase 59 U/L (46-116); Bilirubin, Direct 0.1 mg/dL (0.0-0.2); Bilirubin, Total 0.3 mg/dL (0.2-1.0); C-Reactive Protein 0.25 mg/dL (0.0-0.3); CREATININE 0.9 mg/dL (0.55-1.02); Total Protein 7.1 g/dL (6.4-8.2)
== END 2022-01-03 02:52 | disposition home or self-care (01) ==
LOC: LBO 02:51
PROVIDERS: PCP Nurse Practitioner; Visit Provider Internal Medicine
DX: M25.551 Pain in right hip (principal); M25.552 Pain in left hip; G89.29 Other chronic pain; K11.20 Sialoadenitis, unspecified; G62.9 Polyneuropathy, unspecified
CPT/HCPCS: 36415; 80076; 85652; 82565; 85025; 86140

== ENCOUNTER 2022-09-11 02:58 | Outpatient (CLI) | payer BC, SELFPAY ==
[2022-09-11 08:26] LABS: HCT 41.3 % (36.0-46.0); HGB 13.4 g/dL (11.2-15.7); MCHC 32.4 % (32.0-36.0); MCV 96 fL (80-95); Platelet Count 193 10^3/uL (130-400); RBC 4.32 10^6/uL (3.93-5.22); RDW 12.9 % (11.7-14.6); RDW-SD 45.8 fL; WBC 5.67 10^3/uL (4.4-10.8)
[2022-09-11 09:15] LABS: ALT 21 U/L (14-59); AST 20 U/L (15-37); Albumin 3.9 g/dL (3.4-5.0); Alkaline Phosphatase 68 U/L (46-116); Anion Gap 7.7 mmol/L (3-11); BUN 13 mg/dL (7-18); Bilirubin, Total 0.3 mg/dL (0.2-1.0); CO2 28.3 mmol/L (21.0-32.0); CREATININE 0.8 mg/dL (0.55-1.02); Calcium 9.2 mg/dL (8.5-10.1); Calculated LDL 93 mg/dL (<100); Chloride 103 mmol/L (98-107); Cholesterol 202 mg/dL (<200); Estimated GFR 86.42 (mL/min/1.73m2); Glucose 99 mg/dL (74-106); HDL Cholesterol 84 mg/dL (40-60); Potassium 3.6 mmol/L (3.5-5.1); Sodium 139 mmol/L (136-145); TSH (W/Ref FT4) 2.31 uIU/mL (0.36-3.74); Total Protein 7.6 g/dL (6.4-8.2); Triglyceride 125 mg/dL (<150); Vitamin B12 527 pg/mL (193-986)
[2022-09-11 09:35] LABS: Vitamin D 25 Total 47.1 ng/mL (30-100)
[2022-09-12 14:08] LABS: ANA Interpretation Negative (Negative)
== END 2022-09-11 02:59 | disposition home or self-care (01) ==
LOC: LBO 02:58
PROVIDERS: PCP Nurse Practitioner; Visit Provider Nurse Practitioner
DX: Z00.00 Encounter for general adult medical examination without abnormal findings (principal); Z13.220 Encounter for screening for lipoid disorders; E55.9 Vitamin D deficiency, unspecified; R53.83 Other fatigue
CPT/HCPCS: 36415; 80053; 80061; 82306; 85027; 82607; 84443; 86038

== ENCOUNTER 2023-06-11 02:19 | Outpatient (CLI) | payer BC, SELFPAY ==
[2023-06-11 15:22] LABS: ESR 7 mm/hr (0-30)
[2023-06-11 15:23] LABS: Abs Immature Grans 0.03 10^3/uL (0.0-0.06); Absolute Basophil Count 0.08 10^3/uL (0.0-0.2); Absolute Eosinophil Count 0.54 10^3/uL (0.0-0.7); Absolute Lymphocyte Count 2.03 10^3/uL (1.2-3.4); Absolute Monocyte Count 0.53 10^3/uL (0.1-0.8); Absolute Neutrophil Count 6.04 10^3/uL (1.2-6.7); Basophils % 0.9; Eosinophils % 5.8; HCT 39.2 % (36.0-46.0); HGB 13.2 g/dL (11.2-15.7); Immature Grans % 0.3; Lymphocytes % 21.9; MCH 31.1 pg (27.0-33.0); MCHC 33.7 % (32.0-36.0); MCV 93 fL (80-95); Monocytes % 5.7; Neutrophils % 65.4; Platelet Count 218 10^3/uL (130-400); RBC 4.24 10^6/uL (3.93-5.22); RDW 12.8 % (11.7-14.6); RDW-SD 43.8 fL; WBC 9.25 10^3/uL (4.4-10.8)
[2023-06-11 15:55] LABS: ALT 36 U/L (14-59); AST 27 U/L (15-37); Albumin 3.8 g/dL (3.4-5.0); Alkaline Phosphatase 75 U/L (46-116); Anion Gap 11.5 mmol/L (3-11); BUN 18 mg/dL (7-18); Bilirubin, Total 0.2 mg/dL (0.2-1.0); CO2 24.5 mmol/L (21.0-32.0); CREATININE 0.8 mg/dL (0.55-1.02); Calcium 9.2 mg/dL (8.5-10.1); Calculated LDL 129 mg/dL (<100); Chloride 103 mmol/L (98-107); Cholesterol 237 mg/dL (<200); Estimated GFR 86.42 (mL/min/1.73m2); Ferritin 50 ng/mL (8-252); Glucose 101 mg/dL (74-106); HDL Cholesterol 77 mg/dL (40-60); Potassium 3.8 mmol/L (3.5-5.1); Sodium 139 mmol/L (136-145); TSH (W/Ref FT4) 1.24 uIU/mL (0.36-3.74); Total Protein 7.6 g/dL (6.4-8.2); Triglyceride 158 mg/dL (<150)
[2023-06-11 16:17] LABS: C-Reactive Protein 0.61 mg/dL (0.0-0.3)
[2023-06-11 22:08] LABS: Rheumatoid Factor <8.6 IU/mL (<12.0)
[2023-06-12 08:47] LABS: Cyclic Citrullinated Peptide <2.5 U/mL (<5.0)
[2023-06-12 09:15] LABS: C3 Complement 142 mg/dL (81-157); C4 Complement 38 mg/dL (13-39)
[2023-06-12 09:49] LABS: Lyme Ab w Rflx to Lyme Confirm Negative (Negative)
[2023-06-12 16:20] LABS: ANA Interpretation Negative (Negative)
[2023-06-13 23:21] LABS: Anaplasma phagocytophilum Negative (Negative); B. miyamotoi PCR Negative (Negative); Babesia divergens/MO-1 Negative (Negative); Babesia duncani Negative (Negative); Babesia microti Negative (Negative); Ehrlichia chaffeensis Negative (Negative); Ehrlichia ewingii/canis Negative (Negative); Ehrlichia muris eauclairensis Negative (Negative)
== END 2023-06-11 02:20 | disposition home or self-care (01) ==
LOC: LBO 02:19
PROVIDERS: PCP Nurse Practitioner; Visit Provider Nurse Practitioner
DX: I10 Essential (primary) hypertension (principal); R53.83 Other fatigue; M35.00 Sjogren syndrome, unspecified; M25.50 Pain in unspecified joint; J45.909 Unspecified asthma, uncomplicated; K58.9 Irritable bowel syndrome, unspecified
CPT/HCPCS: 36415; 80053; 80061; 85652; 86200; 87798; 82728; 84443; 85025; 86038; 86140; 86160; 86431; 86618

== ENCOUNTER → 2023-08-28 00:25 | Outpatient (CLI) | payer BC, SELFPAY ==
--- OUTSIDE RECORDS SUMMARY | 2023-08-28 00:26 | XMS_ITS | Continuity of Care Document ---
Author Name Unknown Organization [facility] Address [address] [place] [address] Care Team Providers Care Large Animal Husbandry Technician Name Role Phone THOR SALDAÑA NP Primary Care Physician Encounter [facility] FIN NBR [id number] Date(s): 03/19/23 - 03/19/[address] [address]- [place] Discharge Disposition: Home or Self Care Attending Physician: AMADO WESTON Admitting Physician: AMADO WESTON Referring Physician: THOR SALDAÑA NP Results Radiology Reports * Exam Date Time Procedure Performing Provider Status 03/19/23 3:31 PM MG Mammo Screening Bilateral DomainUse r, Generated; Auth (Verified) Notes: (MG Mammo Screening Bilateral) Reason For Exam: SCREENING MG Mammo Screening Bilateral EXAM DESCRIPTION: MG Mammo Screening Bilateral 03/19/2023 INDICATION: SCREENING RISK FACTOR: The patient may be at increased breast cancer risk based on 1 or more risk factors COMPARISON: 01/08/2021 and 08/05/2018 BREAST DENSITY: There are scattered areas of fibroglandular density. FINDINGS: MLO and CC views were performed with digital breast tomosynthesis. Images were reviewed using computer aided detection. Implant displacement views were also obtained. No asymmetry, architectural distortion or suspicious grouping of calcifications to suggest malignancy in either breast. Bilateral breast implants appear grossly stable in appearance ASSESSMENT: No mammographic evidence of malignancy. Negative. BI-RADS category 1. RECOMMENDATION: Screening mammography in 1 year JOB #: [id number] Final Signed by: Manny Nichols MD Signed (Electronic Signature): 03/19/2023 4:07 pm Patient Care team information Care Team Personnel Name: THOR SALDAÑA NP Position: No Access Member Role: Primary Care Physician Address: Address: [address] [place] [id number]- Care Team Related Persons Name: MALACHI REYNOLDS
--- NOTE | 2023-08-28 08:00 | DI.CT_ITS ---
Exam(s) CT NECK W EXAM: CT NECK W CLINICAL HISTORY: eval max sinuses;? infection from parotid,ACUTE FACIAL PAIN,R51.9,K11.20. TECHNIQUE: Imaging Protocol: Axial computed tomography images with coronal and sagittal reformatted images were created and reviewed. CONTRAST MATERIAL: Intravenous: Omnipaque 350 Contrast volume:100mL FINDINGS: There is artifact from the patient's dental amalgam. Orbits and orbital soft tissues: Within normal limits. Visualized paranasal sinuses: There is mild mucosal thickening in the right frontal sinus, bilateral ethmoid air cells, bilateral maxillary sinuses and the left sphenoid sinus. No air-fluid levels are seen. There is a mucous retention cyst in the floor of each of the maxillary sinuses. Nasopharynx: Within normal limits. Oropharynx: Within normal limits. Hypopharynx: Within normal limits. Larynx: Within normal limits. Retropharyngeal space: Within normal limits. Parotids/submandibular: Within normal limits. Thyroid gland: Within normal limits. Lymphadenopathy: There is scattered lymph nodes seen along the level one to level three all measurin g less than 8 mm in short axis diameter which are physiologic in nature. Trachea: Within normal limits. Lung apices: There is a 3 mm nodule in the right lung apex. Bones: Within normal limits for the patient's age. There is mild reversal of the normal cervical christiano dosis. Carotids/Jugular: Within normal limits. Soft tissues: Within normal limits. IMPRESSION: 1. Mild mucosal thickening in the visualized paranasal sinuses. Very small mucous retention cysts in each of the maxillary sinuses. No air-fluid levels are seen to suggest acute sinusitis. 2. Unremarkable parotid and submandibular glands. 3. 3 mm right upper lobe pulmonary nodule. No routine follow-up is required on low risk patients. F or high risk patients (history of smoking or other risk factors), 12 month follow-up CT scan may be i ndicated. (Nan et al, 2017). Unexpected findings RADIATION DOSE DELIVERED: Total DLP Total DLP DATA REPOSITORY: All CT scans at this facility are submitted to the National Radiology Data Registry (NRDR) Dose Index Registry (DIR) with the [employer] (A[employer]). RADIATION OPTIMIZATION: All CT scans at this facility use at least one of these dose optimization te chniques: automated exposure control; mA and/or kV adjustment per patient size (includes targeted exa ms where dose is matched to clinical indication); or iterative reconstruction.
[2023-08-28] MEDS: Normal Saline - Diluent 50 ML VIAL IJ (14:10)
[2023-08-28] MEDS: Omnipaque 350 MG/ML 500 ML BTL-Imaging package 100 ML IJ (14:11)
[2023-08-28] MEDS: Normal Saline Flush 10 ML SYR IVP (14:11)
== END ==
PROVIDERS: PCP Nurse Practitioner; Visit Provider Nurse Practitioner Adult Health
DX: K11.20 Sialoadenitis, unspecified (principal); R51.9 Headache, unspecified; R91.1 Solitary pulmonary nodule
CPT/HCPCS: 70491

== ENCOUNTER 2025-03-08 01:52 | Outpatient (CLI) | payer BC, SELFPAY ==
--- NOTE | 2025-03-08 07:47 | DI.RAD_ITS ---
Exam(s) XR LUMBAR SPINE COMPLETE EXAM: XR LUMBAR SPINE COMPLETE CLINICAL HISTORY: Acute onset low back pain,? compression fracture,M54.50. TECHNIQUE: 2D digital imaging was performed of the lumbar spine. Five images were obtained. AP, la teral, right oblique, left oblique and L5-S1 spot views were obtained. COMPARISON: No exams were available for comparison FINDINGS: BONES: No fracture or destructive lesion. Vertebral bodies are unremarkable. No facet hypertrophy lauryn ntified. DISKS: Intervertebral disc spaces are maintained. ALIGNMENT: Lumbar spinal alignment is within normal limits. No spondylolysis or spondylolisthesis. SOFT TISSUE: There are surgical clips in the right upper quadrant of the abdomen which may reflect pr ior cholecystectomy. IMPRESSION: Unremarkable radiographs of the lumbar spine. DATA REPOSITORY: RADIATION DOSE DELIVERED:
== END 2025-03-08 02:12 ==
PROVIDERS: PCP Family Medicine; Visit Provider Family Medicine
DX: M54.50 Low back pain, unspecified (principal)
CPT/HCPCS: 72110

== ENCOUNTER 2025-03-23 11:38 | Outpatient (REF) | payer BC, SELFPAY | END 2025-03-23 11:39 | disposition home or self-care (01) | LOC: LBN 11:38 | PROVIDERS: PCP Nurse Practitioner; Visit Provider Obstetrics & Gynecology | DX: R30.0 Dysuria (principal); R82.89 Other abnormal findings on cytological and histological examination of urine | CPT/HCPCS: 87086 ==